=== PATIENT | male | born 1960 | race Caucasian/White ===

== ENCOUNTER 2024-10-20 11:05 | Outpatient (CLI) | payer MEDICAID, SELFPAY ==
[2024-10-20 20:27] LABS: Alanine Aminotransferase 23 U/L (12-78); Albumin Level 3.6 g/dl (3.5-5.0); Alkaline Phosphatase 98 U/L (38-126); Anion Gap 14.3 mEq/L (5-15); Aspartate Amino Transferase 27 U/L (17-59); Bilirubin,Total 0.5 mg/dl (0.2-1.3); Blood Urea Nitrogen 9 mg/dl (9-20); Calcium 9.4 mg/dl (8.4-10.2); Carbon Dioxide 27 mmol/L (22.0-30.0); Chloride 103 mmol/L (98-107); Chol/HDL Ratio 3.5 (1-3.5); Cholesterol 139 mg/dl (140-200); Estimated Glomerular Filt Rate 98 ml/min (>60); GFR (African American) 119 ML/MIN (>60); Globulin 3.7 g/dL (1.3-3.2); Glucose 224 mg/dl (74-100); HDL Cholesterol 40 mg/dl (40-60); Potassium 4.3 mmoL/L (3.5-5.1); Sodium 140 mmol/L (136-145); Total Protein,Serum 7.3 g/dl (6.3-8.2); Triglycerides 126 mg/dl (30-150); VLDL Cholesterol 25 mg/dL (0-40)
[2024-10-20 20:37] LABS: Direct LDL Cholesterol 81.75 mg/dL (100-129)
[2024-10-20 20:45] LABS: Hemoglobin A1C 8.4 % (4.0-6.0)
== END 2024-10-20 23:59 | disposition home or self-care (01) ==
LOC: LAB.DROPOF 10-21 12:38
PROVIDERS: PCP Family Medicine; Visit Provider Family Medicine
DX: E11.9 Type 2 diabetes mellitus without complications (principal); E78.5 Hyperlipidemia, unspecified
CPT/HCPCS: 80053; 80061; 83036

== ENCOUNTER 2024-12-11 15:22 | Outpatient (CLI) | payer MEDICAID, SELFPAY ==
[2024-12-11 17:59] LABS: Basophils # 0.1 K/mm3 (0-0.2); Basophils % 0.5 % (0.1-2.0); Eosinophils # 0.2 Kmm3 (0.0-0.4); Eosinophils % 2.1 % (0.1-12.0); Hematocrit 44.1 % (42.0-52.0); Hemoglobin 13.7 g/dL (14.1-18.0); Immature Granulocytes # 0.02 10^3uL; Immature Granulocytes % 0.2 %; Lymphocytes # 4.1 K/mm3 (0.7-4.5); Lymphocytes % 42.4 % (10-50); Mean Corpuscular HGB Conc 31.1 g/dL (31.8-35.4); Mean Corpuscular Hemoglobin 28.4 pg (27.0-31.2); Mean Corpuscular Volume 91.3 fl (80-94); Mean Platelet Volume 12.1 fl (7.4-10.4); Monocytes # 0.6 K/mm3 (0.1-1.0); Monocytes % 6.5 % (1.7-9.3); Neutrophils # 4.7 K/mm3 (1.8-7.8); Neutrophils % 48.3 % (37.0-80.0); Nucleated Red Blood Cells # 0 10^3/uL; Nucleated Red Blood Cells % 0 %; Platelet Count 222 K/mm3 (142-424); Red Blood Count 4.83 M/mm3 (4.60-6.20); Red Cell Distribution Width 13.8 % (11.5-17.5); Red Cell Distribution Width-SD 46.2 fL; White Blood Count 9.7 K/mm3 (4.8-10.8)
[2024-12-11 18:07] LABS: MANUAL DIFFERENTIAL MANUAL DIFFERENTIAL (MANUAL DIFF)
[2024-12-11 18:36] LABS: Alanine Aminotransferase 21 U/L (12-78); Albumin Level 3.7 g/dl (3.5-5.0); Albumin/Globulin Ratio 1.2 (1.1-1.8); Alkaline Phosphatase 105 U/L (38-126); Anion Gap 12.4 mEq/L (5-15); Aspartate Amino Transferase 24 U/L (17-59); Bilirubin,Total 0.6 mg/dl (0.2-1.3); Blood Urea Nitrogen 7 mg/dl (9-20); Calcium 8.6 mg/dl (8.4-10.2); Carbon Dioxide 23 mmol/L (22.0-30.0); Chloride 108 mmol/L (98-107); Estimated Glomerular Filt Rate 137 ml/min (>60); GFR (African American) 165 ML/MIN (>60); Glucose 136 mg/dl (74-100); Potassium 4.4 mmoL/L (3.5-5.1); Sodium 139 mmol/L (136-145); Total Protein,Serum 6.7 g/dl (6.3-8.2); Uric Acid 4.2 mg/dl (3.5-8.5)
[2024-12-11 19:59] LABS: Total Cells Counted 100
[2024-12-11 20:05] LABS: Atypical Lymphocytes % 10; Eosinophils % 5 % (0-3); Lymphocytes % 36 % (10-50); Monocytes % 2 % (2-9); Neutrophils % 47 % (42-76); Platelet Estimate Normal; RBC Morphology Normal
== END 2024-12-11 23:59 | disposition home or self-care (01) ==
LOC: LAB.DROPOF 12-15 11:00
PROVIDERS: PCP Family Medicine; Visit Provider Family Medicine
DX: E78.5 Hyperlipidemia, unspecified (principal); M79.89 Other specified soft tissue disorders
CPT/HCPCS: 80053; 84550; 85007; 85025; 85027

== ENCOUNTER 2025-06-03 12:18 | Outpatient (CLI) | payer OTHER, SELFPAY ==
--- NOTE | 2025-06-03 12:21 | XR_ITS ---
FINAL REPORT CLINICAL HISTORY: Pain, right foot; right dorsal pain COMPARISON: None FINDINGS: Three views of the right foot show nondisplaced fractures involving the 2nd distal metatarsal shaft in the 4th metatarsal head. There is also a questionable 3rd metatarsal neck fracture. Osteopenia is noted. There are scattered degenerative changes. The joints are intact. IMPRESSION: Fractures as above. Reviewed, Interpreted and Dictated by Vipin Whatley MD Transcribed by Rona John Authenticated and [facility]
--- OUTSIDE RECORDS SUMMARY | 2025-06-03 12:21 | XMS_ITS | Clinical Summary ---
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, subsequent encounter(s) T84.63xD (ICD-10-CM) Active Yun Mcintyre Infection and inflammatory reaction due to internal fixation device of spine, subsequent encounter Cellulitis of LLE 257628066 (SNOMED CT) Active Yun Mcintyre Cellulitis of lower limb Cellulitis of RLE 263633544 (SNOMED CT) Active Yun Mcintyre Cellulitis of lower limb Anasarca 891721054 (SNOMED CT) Active Yun Mcintyre Anasarca Lymphedema, chronic I89.0 (ICD-10-CM) Active Yun Mcintyre Lymphedema, not elsewhere classified DM II with diabetic peripheral neuropathy 15169518 (SNOMED CT) Active Yun Mcintyre Type 2 diabetes mellitus Benign Essential Hypertension 81220883 (SNOMED CT) Active Yun Mcintyre Benign hypertension Medications Medication Instructions Start Date Stop Date Generic Name NDC Provider TAB-A-KAYLYNN/IRO N/BETA CAROTENE TABS multivitamin-iro n- folic acid 85597598598 Jake Shah [employer] lactobac. rhamnosus gg-inulin 35112361316 Jake Shah JARDIANCE 25 MG TABS empagliflozin 84504856051 Jake Shah NARCAN 4 MG/0.1ML LIQD naloxone 90547089693 Jake Shah OXYCODONE HCL 10 MG TABS oxycodone 65178647873 Jake Shah FENOFIBRATE 48 MG TABS fenofibrate nanocrystallized 13223636676 Jake Shah LANTUS SOLOSTAR 100 UNIT/ML SOPN INJECT 40 UNITS SUBCUTANEOUSLY EVERY DAY DIRECTED insulin glargine 06825537254 Jake Shah AMITIZA 24 MCG CAPS lubiprostone 14933541874 Jake Shah DOXYCYCLINE HYCLATE 100 MG TABS doxycycline hyclate 42166194442 Jake Shah aspirin 81 mg tablet,chewabl e aspirin 97817898566 Jake Shah GABAPENTIN 800 MG TABS TAKE 1 TABLET BY MOUTH FOUR TIMES DAILY - TAKE WITH 100MG TO EQUAL A TOTAL DOSE OF 900MG FOUR TIMES DAILY gabapentin 29250577759 Jake Shah THERA-DERM LOTN lanolin-mineral oil 89950619052 Jake Shah POTASSIUM CHLORIDE ER 10 MEQ CR-TABS potassium chloride 57846481723 Issa Shah SENNA 8.6 MG TABS sennosides 09623773963 Jake Shah FUROSEMIDE 40 MG TABS furosemide 13660465733 Jake Shah OXYCODONE HCL 5 MG TABS oxycodone 69354354969 Jake Shah PEG 3350 17 GM/SCOOP POWD polyethylene glycol 3350 31928065542 Jake Shah CLOPIDOGREL BISULFATE 75 MG TABS clopidogrel 58656523907 Jake Shah METHADONE HCL 10 MG TABS TAKE 2 TABLETS BY MOUTH EVERY SIX HOURS methadone 60442482777 Jake Shah SANTYL 250 UNIT/GM OINT collagenase clostridium histo. 24770205216 Jake Shah Medications Administered No information available. 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 Vital Signs Date Name Value Unit Description Body Temperature 97.5 [degF] temperat ure E&M BP Diastolic 70 mm[Hg] blood pressu re, diastolic BP Systolic 98 mm[Hg] blood pressur e, systolic Heart Rate 89 /min pulse rate Weight Measured 213 [lb_av] weight E& M Weight Measured 213 [lb_av] weight E& M Immunizations No information available. Advance Directives No information available.
--- OUTSIDE RECORDS SUMMARY | 2025-06-03 12:21 | XMS_ITS | Clinical Summary ---
Author Organization [facility] Address [address] [place] [address] Phone Care Team Providers Care Seed Cone Picker Name Role Phone Isidro Fisher MD Primary Care Provider [phone] Allergies Active Allergy Reactions Criticality Noted Date Comments Penicillins Hives 11/27/2011 Throat swells Medications bisoprolol-hydro chlorothiazide (ZIAC) 10-6.25 mg per tablet Take 1 Tab by mouth every morning. Active lisinopril (PRINIVIL;ZESTRI L) 2.5 mg tablet Take by mouth every morning. Active prasugrel (EFFIENT) 10 mg Take 10 mg by mouth every morning. Active oxyCODONE (OXY-IR) 30 mg immediate release tablet Take 30 mg by mouth every 4 hours as needed. Active diazepam (VALIUM) 10 mg Take 10 mg by mouth every 12 hours as needed. Active aspirin 325 mg Take 325 mg by mouth daily. 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 Hyperlipidemia taken off medica tion 3 months ago Hypertension Osteoarthritis lt arm, back, lt ankle, lt knee Family History Medical History Relation Name Comments Stroke Father Diabetes Paternal Grandfather Diabetes Paternal Uncle Anesth Problems Neg Hx Relation Name Status Comments Father Mother Alive Paternal Grandfather Paternal Uncle Social History Tobacco Use Types Packs/Day Years Used Date Smoking Tobacco: Every Day Cigarettes 1 20 Alcohol Use Standard Drinks/Week Comments No 0 (1 standard drink = 0.6 oz pur e alcohol) socially Sex and Gender Information Value Date Recorded Sex Assigned at Not on file Legal Sex Male 8:36 AM EDT Gender Identity Not on file Sexual Orientation Not on file Last Filed Vital Signs Vital Sign Reading Time Taken Comments Blood Pressure 122/63 11/30/2011 9:55 AM EDT Pulse 64 11/30/2011 9:55 AM EDT Temperature 36.4 C (97.6 F) 11/30/2011 9:39 AM EDT Respiratory Rate 18 11/30/2011 9:55 AM EDT Oxygen Saturation 95% 11/30/2011 9:55 AM EDT Inhaled Oxygen Concentration - - Weight 111.6 kg (246 lb) 11/30/2011 6:23 AM EDT Height 177.8 cm (5' 10 ) 11/27/2011 10:24 AM EDT Body Mass Index 35.3 11/27/2011 10:24 AM EDT Plan of Treatment Health Maintenance Due Date Last Done Comments Annual Wellness Exam 1965 Hepatitis C Screening 02/13/1980 DTaP/TDaP/Td (1 - Tdap) 1981 Cologuard 2007 Colon Cancer Screening 2007 Colonoscopy 2007 FIT 2007 Sigmoidoscopy 2007 Virtual Colonography 2007 Low Dose Lung Cancer Screening 02/13/2012 Pneumococcal Vaccine 50+ (1 of 1 - PCV) 02/13/2012 Zoster (1 of 2) 02/13/2012 COVID-19 Vaccine (2024-2 6 season) 2025 Influenza Vaccine (#1) 2025 Hepatitis B Vaccine Aged Out No longe r eligible based on patient's age to complete this topic Meningococcal B Vaccine Aged Out No l onger eligible based on patient's age to complete this topic Insurance [employer] [place] on file [employer] Advance Directives For more information, please contact: [phone] Documents on File Type Date Recorded Patient Field Nurse Case Manager Expl anation Advance Directives/DNR 12/03/2011 1:55 PM Care Teams Seed Cone Picker Relationship Specialty Start Date End Date Isidro Fisher MD [address] [facility] [place] [address] PCP - General 11/12/11
--- OUTSIDE RECORDS SUMMARY | 2025-06-03 12:21 | XMS_ITS | Clinical Summary ---
Author Organization [employer] ([place], [place], [place], [place], [place]) Address [address] [place] [address] Care Team Providers Care Accounting Recruiter Name Role Phone Unavailable Primary Care Provider Unavailabl e Social History Tobacco Use Types Packs/Day Years Used Date Smoking Tobacco: Never Assessed Sex and Gender Information Value Date Recorded Sex Assigned at Male 01/16/2022 11:32 AM CDT Legal Sex Male 11:32 AM CDT Gender Identity Male 01/16/2022 11:32 AM CDT Sexual Orientation Not on file Plan of Treatment Not on file
--- OUTSIDE RECORDS SUMMARY | 2025-06-03 12:21 | XMS_ITS | Encounter Summary ---
Author Organization [facility] Address [address] [place] [address] Care Team Providers Care Frame Expander Name Role Phone Norberto Breaux MD Primary Care Provider [phone] Reason for Visit * Reason Comments Med Refill Encounter Details Date Type Department Care Team (Late st Contact Info) Description 04/12/2023 Refill [facility] [address] [place] [address] Isidro Fisher MD [address] [place] [address] Social History Tobacco Use Types Packs/Day Years Used Date Smoking Tobacco: Former Cigarettes 0.5 30 1 08/1988 - 06/2019 Smokeless Tobacco: Never Comments:quit 06/23/2019 Alcohol Use Standard Drinks/Week Comments Yes 0 (1 standard drink = 0.6 oz pur e alcohol) occasional Overall Financial Resource Strain (CARDIA) Answe r Date Recorded How hard is it for you to pa y for the very basics like food, housing, medical care, and heating? Somewhat hard 01/20/2021 PHQ-2 Answer Date Recorded Retired PHQ-9: Brief Depression Severity Measure Score 0 09/05/2022 Hunger Vital Sign Answer Date Recorded Within the past 12 months, y ou worried that your food would run out before you got the money to buy more. Never true 01/21/20 21 Within the past 12 months, t he food you bought just didn't last and you didn't have money to get more. Never true 01/20/2021 PRAPARE - Transportation Answer Date Re corded In the past 12 months, has l ack of transportation kept you from medical appointments or from getting medications? No 08/2020 In the past 12 months, has l ack of transportation kept you from meetings, work, or from getting things needed for daily living? No 01/20/2021 Housing Stability Vital Sign Answer Sebastian e Recorded In the last 12 months, was t here a time when you were not able to pay the mortgage or rent on time? No 01/20/2021 In the last 12 months, how many places have you lived? 1 01/20/2021 In the last 12 months, was t here a time when you did not have a steady place to sleep or slept in a longterm (including now)? No 01/20/2021 Abuse Screen Answer Date Recorded Feels Unsafe at Home or Work/School no 09/28/2022 Feels Threatened by Someone no 09/19 Does Anyone Try to Keep You From Having Contact with Others or Doing Things Outside Your Home? no 09/28/2022 Physical Signs of Abuse Present no 09/28/2022 Housing Stability Answer Date Recorded Current Living Arrangements home 09/19 Potentially Unsafe Housing Conditions Not on natalia e 09/28/2022 Disabilities Answer Date Recorded Difficulty Concentrating, Remembering or Making Decisions no 09/28/2022 Difficulty Managing Errands Independently no 09/28/2022 Education Answer Date Recorded Help with school or training? Not on file Preferred Language Cymro 09/24/2022 PHQ-2 Answer Date Recorded Retired PHQ-9: Brief Depression Severity Measure Score 0 09/05/2022 Sex and Gender Information Value Date Recorded Sex Assigned at Not on file Legal Sex Male 1:17 PM EDT Gender Identity Not on file Sexual Orientation Not on file Occupation Industry Job Start Date Job End Date [employer] Not on file Not on file Not on file documented as of this encounter Plan of Treatment Scheduled Procedures Name Priority Associated Diagnoses Date/Ti nh CV CAROTID CEREBRAL ANGIOGRA M BILATERAL Carotid stenosis, asymptomatic, right CV CAROTID CEREBRAL ANGIOGRA M BILATERAL Carotid stenosis, symptomatic w/o infarct, right Amaurosis fugax of right eye CV IR INTERNAL CAROTID, UNIL AT, W/ANGIOGRAPHY OF IPSILAT INTRACRANIAL CAROTID, W/EXTRACRANIAL CAROTID Carotid stenosis, asymptomatic, bilateral documented as of this encounter Visit Diagnoses Not on filedocumented in this encounter Additional Health Concerns Infection Onset Date Last Indicated Resolved Time MRSA 04/03/2021 04/03/2021 documented as of this encounter Care Teams Frame Expander Relationship Specialty Start Date End Date Norberto Breaux MD [facility] [place] [address] PCP - General Family Medicine 08/12/24 documented as of this encounter
--- OUTSIDE RECORDS SUMMARY | 2025-06-03 12:21 | XMS_ITS | Referral Summary ---
Author Organization [employer] ([place], [place], [place], [place], [place]) Address [address] [place] [address] Care Team Providers Care Application Programmer Analyst Name Role Phone Unavailable Primary Care Provider [...]
--- OUTSIDE RECORDS SUMMARY | 2025-06-03 12:21 | XMS_ITS | Clinical Summary ---
Author Organization [facility] Address [address] [place] [address] Care Team Providers Care Statistical Programmer Name Role Phone Norberto Breaux MD Primary Care Provider [phone] Allergies Active Allergy Reactions Criticality Noted Date Comments Acetaminophen Swelling High 11/13/2017 Makes my throat swell Codeine Rash Medium 10/03/2015 Ketamine Hallucinations Medium 07/06/2020 Penicillins Anaphylaxis High 10/03/2015 Medications aspirin 81 MG EC tabletIndication s:Coronary artery disease involving [place] coronary artery of [place] heart with unstable angina pectoris Take 1 tablet by mouth Daily. 30 tablet 5 0 Active gabapentin (NEURONTIN) 800 MG tabletIndication s:Diabetic peripheral neuropathy Take 1 tablet by mouth 4 (Four) Times a Day. 120 tablet 2 Active topiramate (TOPAMAX) 25 MG tablet 2 (Two) Times a Day. One in morning, one at night but will change 3 Active nitroglycerin (Nitrostat) 0.4 MG SL tabletIndication s:Coronary artery disease involving [place] coronary artery of [place] heart with unstable angina pectoris Place 1 tablet under the tongue Every 5 (Five) Minutes As Needed for Chest Pain. Take no more than 3 doses in 15 minutes. 25 tablet 5 4 Active Continuous Blood Gluc Transmit (Dexcom G6 Transmitter) miscIndications: Type 2 diabetes mellitus without complication, with long-term current use of insulin Use 1 each Daily. 1 each 5 4 Active Continuous Blood Gluc Sustainability Coordinator (Dexcom G7 Sustainability Coordinator) deviceIndication s:Type 2 diabetes mellitus with diabetic neuropathy, with long-term current use of insulin Use 1 each Daily. 1 each 1 4 Active furosemide (LASIX) 40 MG tabletIndication s:Venous stasis of both lower extremities TAKE ONE TABLET BY MOUTH ONCE DAILY 30 tablet 4 Active Additional Information Patient taking differently:40 mg OralAs Needed, Reported on 08/12/2024 lisinopril (PRINIVIL,ZESTRI L) 2.5 MG tabletIndication s:Essential hypertension Take 1 tablet by mouth Daily. 30 tablet 4 4 Active omeprazole (priLOSEC) 40 MG capsuleIndicatio ns:Gastroesophag eal reflux disease, unspecified whether esophagitis present Take 1 capsule by mouth Daily. 90 capsule 1 4 Active B-D UF III MINI PEN NEEDLES 31G X 5 MM misc USE TO INJECT INSULIN DAILY 100 each 9 4 Active methadone (DOLOPHINE) 10 MG tabletIndication s:Chronic pain syndrome Take 2 tablets by mouth Every 6 (Six) Hours As Needed for Moderate Pain 2 tablets every 6 hours, 240 tablet 4 Active atorvastatin (LIPITOR) 80 MG tabletIndication s:Hypercholester olemia Take 1 tablet by mouth every night at bedtime. 30 tablet 5 4 Active empagliflozin (Jardiance) 25 MG tablet tabletIndication s:Type 2 diabetes mellitus with diabetic neuropathy, with long-term current use of insulin Take 1 tablet by mouth Daily. 30 tablet 3 4 Active clopidogrel (PLAVIX) 75 MG tabletIndication s:Coronary artery disease involving [place] coronary artery of [place] heart with unstable angina pectoris Take 1 tablet by mouth Daily. 30 tablet 5 4 Active Insulin Glargine (Lantus SoloStar) 100 UNIT/ML injection penIndications:T ype 2 diabetes mellitus with diabetic neuropathy, with long-term current use of insulin Inject 130 Units under the skin into the appropriate area as directed Every Morning. 45 mL 3 4 Active Continuous Glucose Sensor (Dexcom G7 Sensor) miscIndications: Type 2 diabetes mellitus with diabetic neuropathy, with long-term current use of insulin Use 1 each Every 10 (Ten) Days. 3 each 5 4 Active Sod Picosulfate-Mag Ox-Cit Acd 10-3.5-12 MG-GM -GM/160ML solution Take 350 mL by mouth Take As Directed for 1 dose. 350 mL 5 Active Active Problems Problem Noted Date Diagnosed Date DDD (degenerative disc disease), lumbar 11/25/19 24 Lumbar radiculopathy 08/30/2022 Impaired mobility 10/12/2021 Spondylosis of cervical petey on without myelopathy or radiculopathy 04/17/2021 Cervical spondylosis with myelopathy 03/28/2021 Bilateral carpal tunnel syndrome 02/25/2020 Diabetic peripheral neuropathy 08/27/2019 Unstable angina 10/15/2017 Overview (10/15/2017): Added automatically from request for surgery [id number] PAD (peripheral artery disease) 04/26/2017 Overview (06/05/2017): Added automatically from request for surgery [id number] Fem-Fem bypass by Dr. Roque on 06/05/17 PVD (peripheral vascular disease) 04/24/2017 Intention tremor 03/08/2017 Intermittent claudication 03/04/2017 Bilateral carotid artery stenosis 11/23/2016 GERD (gastroesophageal reflux disease) 7 Gait disturbance 08/13/2016 Hyperlipidemia LDL goal <70 08/13/2016 Overview (10/05/2016): High intensity statin therapy indicated given the presence coronary artery disease Lumbar disc herniation with radiculopathy 2015 Sciatica of right side 12/14/2015 Anxiety 12/09/2015 Chronic pain 12/09/2015 Essential hypertension 12/09/2015 COPD (chronic obstructive pulmonary disease) Type 2 diabetes mellitus wit h diabetic neuropathy, with long-term current use of insulin 12/09/2015 Coronary artery disease invo lving [place] coronary artery of [place] heart with unstable angina pectoris Overview (10/05/2016): Cardiac catheterization (01/09/2012): STANTON to RCA and STANTON to mid LAD. 50% proximal LAD and proximal RCA with normal FFR. Cardiac catheterization (02/20/2012): Patent LAD and RCA stents. STANTON to circumflex bifurcation. Cardiac catheterization (10/03/2012): LVEF 50%. Diffuse disease proximal mid LAD significant with FFR and STANTON placed. STANTON to RCA. Cardiac catheterization (11/2012): Patent stents. 50% circumflex. Cardiac catheterization (09/01/2013): Widely patent stents in RCA, diagonal and LAD. Normal LVEF. 50% OM1 with acceptable FFR. Cardiac catheterization (03/08/2015): Nonobstructive CAD with patent stents. Cardiac catheterization for unstable angina (10/05/2016): Severe multivessel coronary artery disease (distal LAD, first diagonal branch, and distal left circumflex). Status post STANTON to distal LAD, angioplasty of the first diagonal branch, and medical therapy for distal circumflex stenosis. Normal LVEF. Resolved Problems Problem Noted Date Diagnosed Date Resolved Date Right-sided carotid artery disease 02/05/2024 2024 Neck muscle spasm 02/06/2022 08/20/2023 Anasarca 05/23/2021 11/15/2023 Bilateral hand numbness 12/29/202007/23 Neck pain 12/29/2020 08/15/2021 Abnormal carotid duplex scan 10/01/2019 2024 Overview (10/01/2019): Added automatically from request for surgery [id number] Drowsiness 09/07/2019 03/18/2020 Essential tremor 08/27/2019 03/18/2020 Chest pain 10/15/2017 03/03/2018 Peripheral vascular disease 02/06/2017 03/18/2020 Carotid stenosis 01/01/2017 2024 Onychomycosis 11/05/2016 03/18/2020 Bruit of right carotid artery 10/24/2016 08/15/2021 Tobacco abuse 10/24/2016 08/15/2021 Chest pain 10/04/2016 10/05/2016 RUQ pain 10/04/2016 03/03/2018 Unintentional weight loss 10/04/2016 Leukocytosis 10/04/2016 03/03/2018 Current every day smoker 08/13/2016 Pneumonia due to infectious organism 07/30/2016 10/05/2016 Coronary arteriosclerosis in [place] artery 12/09/2015 10/05/2016 Herniated lumbar intervertebral disc 12/09/2015 03/18/2020 Low back pain 12/09/2015 04/07/2018 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 In 1994 and 1995, normal heart catheterization per patient report. b. February 2011, chest pain syndrome, abnormal stress Cardiolite with inferolateral ischemia. Cardiac catheterization showed 90% mid-RCA (3.5 by 28 mm Promus), 60% distal LCX stenosis, 30% LAD. Normal left ventricular ejection fraction. c. On 01/09/2012, chest pain/cardiac catheterization showing mid right coronary artery edge restenosis (3.5 x 18 mm Xience drug eluting stent), 80% mid LAD (3.0 x 12 mm Xience), 50% proximal LAD and proximal right coronary artery both with normal fractional flow reserve. d. On 02/20/2012, recurrent chest pain. Cardiac catheterization showing widely patent LAD and RCA stents. 85% LCX bifurcation (3.0 x 23 mm Xience upper division; 2.5 PTCA of lower division). e. On 10/03/2012, progressive angina. Catheterization showed ejection fraction 50%. Severe diffuse disease in proximal and mid LAD (FFR 0.73). Treated with 3.0 x 28 Promus Element. 90% right coronary artery (3.5 x 28 Promus Element). f. Recurrent chest pain, November 2012: All widely patent stents. No flow-limiting disease (50% LCX). g. Recurrent chest pain, 09/01/2013. Cardiac catheterization with 50% OM-1 (FFR 0.85). Widely patent stents in LAD, RCA, diagonal. Normal left ventricular ejection fraction. h. Chest pain, 03/08/2015, cardiac catheterization, (Dr. Davies), nonflow obstructive coronary artery disease, unchanged from previous. Hypertension 09/29/2019 Dyslipidemia 03/18/2020 Back pain 05/23/2021 Overview (10/24/2016): CHRONIC 1. with a history of lumbar spine surgeries. Anxiety disorder 03/18/2020 Encounters Date Type Department Care Team Description 03/25/2025 Telephone [facility] [address] [place] [address] Navigator, Lung from Last 3 Months Immunizations Immunization Administration Dates Next Due COVID-19 (MERVAT) 06/09/2021,10/13/2020 Fluzone >6mos 05/19/2024 Fluzone (or Fluarix & Flulav al for VFC) >6mos 04/15/2023,05/14/2022,04/28/2020 Influenza, Unspecified 05/14/2022 Family History Medical History Relation Name Comments Coronary artery disease Father rian riosclerosis Hypertension Father Stroke Father Cancer Mother shad senior Heart failure Mother shad senior Diabetes Paternal Grandfather Relation Name Status Comments Father Mother shad senior Paternal Grandfather Social History Tobacco Use Types Packs/Day Years Used Date Smoking Tobacco: Former Cigarettes 0.5 30 1 08/1988 - 06/2019 Passive Smoke Exposure: Never Smokeless Tobacco: Never Tobacco Cessation:Counseling Given: Not Answered Comments:quit 06/23/2019 Alcohol Use Standard Drinks/Week Comments Yes 0 (1 standard drink = 0.6 oz pur e alcohol) occasional [facility] Utilities Answer Date Recorded In the past 12 months has [employer] gas, oil, or water [employer] threatened to shut off services in your home? No 02/06/2024 AUDIT-C Answer Date Recorded Q1: How often do you have a drink containing alcohol? Never 02/06/2024 Q2: How many drinks containi ng alcohol do you have on a typical day when you are drinking? Patient does not drink Q3: How often do you have si x or more drinks on one occasion? Never 02/06/2024 Overall Financial Resource Strain (CARDIA) Answe r Date Recorded How hard is it for you to pa y for the very basics like food, housing, medical care, and heating? Somewhat hard 02/06/2024 PHQ-2 Answer Date Recorded Retired PHQ-9: Brief Depression Severity Measure Score 0 09/05/2022 [facility] Occupat ional Health - Occupational Stress Questionnaire Answer Date Recorded Do you feel stress - tense, restless, nervous, or anxious, or unable to sleep at night because your mind is troubled all the time - these days? Only a little 02/06/2024 Exercise Vital Sign Answer Date Recorde d On average, how many days pe r week do you engage in moderate to strenuous exercise (like a brisk walk)? 0 days 02/06/2024 On average, how many minutes do you engage in exercise at this level? 0 min 02/06/2024 Hunger Vital Sign Answer Date Recorded Within the past 12 months, y ou worried that your food would run out before you got the money to buy more. Never true 02/06/20 24 Within the past 12 months, t he food you bought just didn't last and you didn't have money to get more. Never true 02/06/2024 PRAPARE - Transportation Answer Date Re corded In the past 12 months, has l ack of transportation kept you from medical appointments or from getting medications? No 01/19 In the past 12 months, has l ack of transportation kept you from meetings, work, or from getting things needed for daily living? No 02/06/2024 Housing Stability Vital Sign Answer Sebastian e [...] place to sleep or slept in a [place] health care facility (including now)? No 01/20/2021 Abuse Screen Answer Date Recorded Feels Unsafe at Home or Work/School no 02/06/2024 Feels Threatened by Someone no 01/19 Does Anyone Try to Keep You From Having Contact with Others or Doing Things Outside Your Home? no 02/06/2024 Physical Signs of Abuse Present no 02/06/2024 Housing Stability Answer Date Recorded Current Living Arrangements home 01/19 Potentially Unsafe Housing Conditions none 02/06/2024 Family and Community Support Answer Sebastian e Recorded If for any reason you need h elp with day-to-day activities such as bathing, preparing meals, shopping, managing finances, etc., do you get the help you need? I get all the help I need 02/06/2024 How often do you feel lonely or isolated from those around you? Never 02/06/2024 Employment Answer Date Recorded Do you want help finding or keeping work or a job? I do not need or want help 02/06/2024 Disabilities Answer Date Recorded Difficulty Concentrating, Remembering or Making Decisions no 02/06/2024 Difficulty Managing Errands Independently no 02/06/2024 Education Answer Date Recorded Do you want help with school or training? For example, starting or completing job training or getting a high school diploma, GED or equivalent No 02/06/2024 Preferred Language North Korean 02/06/2024 PHQ-2 Answer Date Recorded Retired PHQ-9: Brief Depression Severity Measure Score 0 02/06/2024 Sex and Gender Information Value Date Recorded Sex Assigned at Not on file Legal Sex Male 1:17 PM EDT Gender Identity Not on file Sexual Orientation Not on file Occupation Industry Job Start Date Job End Date [employer] Not on file Not on file Not on file Last Filed Vital Signs Vital Sign Reading Time Taken Comments Blood Pressure 101/67 08/12/2024 11:37 AM EST Pulse 78 08/12/2024 11:37 AM EST Temperature 36.9 C (98.4 F) 07/14/2024 10:23 AM EST Respiratory Rate 16 07/14/2024 10:23 AM EST Oxygen Saturation 94% 08/12/2024 11:37 AM EST Inhaled Oxygen Concentration - - Weight 107 kg (235 lb 3.2 oz) 08/12/2024 11:37 A M EST Height 177.8 cm (5' 10 ) 08/12/2024 11:37 AM EST Body Mass Index 33.75 08/12/2024 11:37 AM EST Plan of Treatment Scheduled Procedures Name Priority Associated Diagnoses Date/Ti me CV CAROTID CEREBRAL ANGIOGRA M BILATERAL Carotid stenosis, asymptomatic, right CV CAROTID CEREBRAL ANGIOGRA M BILATERAL Carotid stenosis, symptomatic w/o infarct, right Amaurosis fugax of right eye CV IR INTERNAL CAROTID, UNIL AT, W/ANGIOGRAPHY OF IPSILAT INTRACRANIAL CAROTID, W/EXTRACRANIAL CAROTID Carotid stenosis, asymptomatic, bilateral Health Maintenance Due Date Last Done Comments Pneumococcal Vaccine 50+ (1 of 2 - PCV) 1981 TDAP/TD VACCINES (1 - Tdap) 1981 COLOGUARD 2007 COLON CANCER SCREENING [address] SIG[address] COLONOGRAPHY 2007 FECAL OCCULT BLOOD TEST 2007 FIT Testing (1 year) 2007 ZOSTER VACCINE (1 of 2) 02/13/2012 ANNUAL PHYSICAL 12/09/2015 DIABETIC FOOT EXAM 11/05/2017 11/05/2016, 0 11/05/2016, 11/05/2016, Additional history exists URINE MICROALBUMIN-CREATININ E RATIO (uACR) 01/14/2019 01/14/2018 COLONOSCOPY 10/03/2022 10/03/2012 COLORECTAL CANCER SCREENING 10/03/2022 DIABETIC EYE EXAM 11/12/2024 11/13/2023 (Patrick daly-Reported (Performed Externally)), 06/23/2019, 11/27/2016 HEMOGLOBIN A1C 11/17/2024 05/19/2024, 01/19, 02/03/2024, Additional history exists LIPID PANEL 11/24/2024 11/25/2023, 07/22, 01/03/2023, Additional history exists INFLUENZA VACCINE 02/19/2025 05/19/2024, , 05/14/2022, Additional history exists HEPATITIS C SCREENING Completed 09/24/2016 LUNG CANCER SCREENING Discontinued 12/17/2023 , 10/15/2017, 10/04/2016, Additional history exists Medical Devices Implanted Type Area Mortician Helper Device Identifier Shelf Expiration Date Model / Serial / Lot Ptch Vascuguard 1x6cm - [id number] Implanted:Qty : 1 on 01/01/2017 by Mohinder Roque MD at [facility] Implant Left: Carotid SYNOVIS 06/04/2021 [id number] / / [id number] Grft Vasc Propat Thnstrch Pppacdu7x35l2 0 - [id number] Implanted:Qty : 1 on 06/05/2017 by Mohinder Roque MD at [facility] Implant N/A: Groin [employer] 12/09/2020 [id number] / / Kt Seal Hemos Abs Floseal Matrx Fast/Prep 10ml - [id number] Implanted:Qty : 1 on 04/05/2021 by Porter Escobar MD at [facility] Implant N/A: Spine Cervical [facility] [id number] / / [id number] Cage Cerv Anatomic Ptc [id number] - [id number] Implanted:Qty : 1 on 04/05/2021 by Porter Escobar MD at [facility] Implant N/A: Spine Cervical [employer] [id number] / / 0 Plt Acp Bluford Vsn Elt 1lvl 21mm Ns - [id number] Implanted:Qty : 1 on 04/05/2021 by Porter Escobar MD at [facility] Implant N/A: Spine Cervical [employer] [id number] / / 0 Scrw Bluford Vsn Elite Va S/Tap [id number] - [id number] Implanted:Qty : 4 on 04/05/2021 by Porter Escobar MD at [facility] Implant N/A: Spine Cervical [employer] [id number] / / 0 Putty Dbm Memo 6cc - [id number] Implanted:Qty : 1 on 04/05/2021 by Porter Escobar MD at [facility] Implant N/A: Spine Cervical [employer] 12/23/2022 [id number] / / [id number] Kt Seal Hemos Abs Floseal Matrx Fast/Prep 10ml - [id number] Implanted:Qty : 1 on 04/05/2021 by Porter Escobar MD at [facility] Implant N/A: Spine Cervical [facility] [id number] / / 0 Hemost Abs Surgifoam Sz100 8x12 10mm - [id number] Implanted:Qty : 1 on 04/05/2021 by Porter Escobar MD at [facility] Implant N/A: Spine Cervical [employer] J AND J 1974 / / 0 Clip Ligat Vasc Horizon Ti Sm Yel 6ct - [id number] Implanted:Qty : 1 on 04/05/2021 by Porter Escobar MD at [facility] Implant N/A: Spine Cervical [employer] [id number] / / 0 Clip Ligat Vasc Horizon Josep Babb Jean Pierre 6ct - [id number] Implanted:Qty : 1 on 04/05/2021 by Porter Escobar MD at [facility] Implant N/A: Spine Cervical [employer] [id number] / / 0 Clip Ligat Vasc Horizon Ti Md Jean Pierre 6ct - [id number] Implanted:Qty : 1 on 04/18/2021 by Porter Escobar MD at [facility] Implant N/A: Spine Cervical [employer] [id number] / / 0 Clip Ligat Vasc Horizon Ti Sm Yel 6ct - [id number] Implanted:Qty : 1 on 04/18/2021 by Porter Escobar MD at [facility] Implant N/A: Spine Cervical [employer] [id number] / / 0 Kt Seal Hemos Abs Floseal Matrx Fast/Prep 10ml - [id number] Implanted:Qty : 1 on 04/18/2021 by Porter Escobar MD at [facility] Implant N/A: Spine Cervical [facility] [id number] 12/31/2022 [id number] / / [id number] Hemost Abs Surgifoam Sz100 8x12 10mm - [id number] Implanted:Qty : 1 on 04/18/2021 by Porter Escobar MD at [facility] Implant N/A: Spine Cervical [employer] J AND J 1974 / / 0 Pin Compr 16mm - [id number] Implanted:Qty : 2 on 04/18/2021 by Porter Escobar MD at [facility] Implant N/A: Spine Cervical [employer] [id number] / / 0 Cage Cerv Anatomic Ptc [id number] - [id number] Implanted:Qty : 1 on 04/18/2021 by Porter Escobar MD at [facility] Implant N/A: Spine Cervical [employer] [id number] / / 0 Plt Acp Bluford Vsn Elt 1lvl 27.5mm Ns - [id number] Implanted:Qty : 1 on 04/18/2021 by Porter Escobar MD at [facility] Implant N/A: Spine Cervical [employer] [id number] / / 0 Scrw Bluford Vsn Elite Va S/Tap [id number] - [id number] Implanted:Qty : 4 on 04/18/2021 by Porter Escobar MD at [facility] Implant N/A: Spine Cervical [employer] [id number] / / 0 Hemost Abs Surgifoam Sz100 8x12 10mm - [id number] Implanted:Qty : 1 on 09/28/2022 by Porter Escobar MD at [facility] Implant N/A: Spine Lumbar [employer] J AND J 1974 / / NA Kt Seal Hemos Abs Floseal Matrx Fast/Prep 10ml - [id number] Implanted:Qty : 1 on 09/28/2022 by Porter Escobar MD at [facility] Implant N/A: Spine Lumbar [facility] [id number] / / NA Ptch Vasc Vascuguard 1x6cm Strl - Sna - [id number] Implanted:Qty : 1 on 02/05/2024 by Mohinder Roque MD at [facility] Implant Right: Carotid [facility] 08/12/2025 [id number] / NA / [id number] Stent Stent Description:approx 12-14 car diac stents Implant Description:Cervical hardwar e in place Stent Xience Alpine Stanton Rx 2.21u19mh - [id number] Implanted:Qty : 1 on 10/05/2016 by Georges Kidd IV, MD at [facility] PORTILLO VASCULAR [id number] / / Procedures Procedure Name Priority Date/Time Associated Diagnosis Comments HEMOGLOBIN A1C Routine 05/19/2024 2:26 PM EDT Type 2 diabetes mellitus with diabetic neuropathy, with long-term current use of insulin CT CHEST LOW DOSE WO CANCER SCREENING Routine 12/17/2023 9:06 AM EDT Personal history of tobacco use, presenting hazards to health LIPID PANEL Routine 11/25/2023 8:35 AM EDT Hypercholesterolemi a SCANNED - EYE EXAM 06/23/2019 HEPATITIS C ANTIBODY Routine 09/24/2016 11:40 AM EST Need for hepatitis C screening test COLONOSCOPY Routine 10/03/2012 from Last 3 Months or Most Recently Relevant to Health Maintenance Results * (ABNORMAL) Hemoglobin A1c (05/19/2024 2:26 PM EDT) Hemoglobin A1C 6.9(H) 4.8 - 5.6 % [facility] Comment: Prediabetes: 5.7 - 6.4 Diabetes: >6.4 Glycemic control for adults with diabetes: <7.0 Blood 05/19/2024 2:26 PM EDT 05/19/2024 Narrative [facility] ([facility]) - 05/20/2024 8:19 AM EDT Performed at: - [address] [id number] Practice Physician: Dennis Dempsey PhD, Phone: [phone] Patient Fasting: N us Isidro Fisher MD LAB BLOOD ORDERABLES Final Resu lt [facility] ([facility]) [address] [place] [address], [facility] [address] [place] [address], * CT Chest Low Dose Cancer Screening WO (12/17/2023 9:06 AM EDT) Anatomical Region Laterality Modality Chest Computed Tomogra phy 12/19/2023 8:29 AM EDT Impressions 12/19/2023 9:04 AM EDT Impression: 1.Moderate coronary artery calcification. 2.Paraseptal emphysema 3.Minimal atelectasis left basilar area. 4.Gynecomastia Recommendation: Continue annual screening with LDCT Lung Rads Assessment: Lung-RADS L1 - Negative, <1% chance of malignancy. Electronically Signed: Giorgio Alexander MD 12/19/2023 9:04 AM EDT Workstation ID: [id number] Narrative 12/19/2023 9:[address] CHEST LOW DOSE CANCER SCREENING WO Date of Exam: 12/17/2023 9:05 AM EDT Indication: Lung cancer screening, >= 20 pk-yr smoking history (Age >= 50y). Comparison: October 15, 2017 Technique: Low dose CT imaging of the chest was performed without intravenous contrast enhancement. Automated exposure control and iterative reconstruction methods were used. Findings: There is coronary artery calcification. No pathologic-appearing mediastinal lymph nodes are seen. On evaluation of lung windows there is a granuloma in the right lower lobe. There is some minimal atelectasis in the left basilar area. There is paraseptal emphysema in the left upper chest. There are no pleural effusions. There is bilateral gynecomastia. Lower slices through the upper arm reveal no acute findings. Procedure Note Giorgio Alexander MD - 12/19/2023 CT CHEST LOW DOSE CANCER SCREENING WO Date of Exam: 12/17/2023 9:05 AM EDT Indication: Lung cancer screening, >= 20 pk-yr smoking history (Age >=50y). Comparison: October 15, 2017 Technique: Low dose CT imaging of the chest was performed withoutintravenous contrast enhancement. Automated exposure control anditerative reconstruction methods were used. Findings: There is coronary artery calcification. No pathologic-appearingmediastinal lymph nodes are seen. On evaluation of lung windows there is agranuloma in the right lower lobe. There is some minimal atelectasis inthe left basilar area. There is paraseptal emphysema in the left upper chest. There are no pleural effusions. There is bilateral gynecomastia. Lower slices through the upper arm reveal no acute findings. IMPRESSION: Impression: 1.Moderate coronary artery calcification. 2.Paraseptal emphysema 3.Minimal atelectasis left basilar area. 4.Gynecomastia Recommendation: Continue annual screening with LDCT Lung Rads Assessment: Lung-RADS L1 - Negative, <1% chance of malignancy. Electronically Signed: Giorgio Alexander MD 12/19/2023 9:04 AM EDT Workstation ID: [id number] Isidro Fisher MD IMG CT ORDERABLES Final Result * (ABNORMAL) Lipid Panel (11/25/2023 8:35 AM EDT) Total Cholesterol 118 0 - 200 mg/dL [facility] Comment: Cholesterol Reference Ranges ([place]. Department of Health and Human Services ATP III Classifications) Desirable <200 mg/dL Borderline High 200-239 mg/dL High Risk >240 mg/dL Triglyceride Reference Ranges ([place] Department of Health and Human Services ATP III Classifications) Normal <150 mg/dL Borderline High 150-199 mg/dL High 200-499 mg/dL Very High >500 mg/dL HDL Reference Ranges (U.S. Department of Health and Human Services ATP III Classifications) Low <40 mg/dl (major risk factor for CHD) High >60 mg/dl ('negative' risk factor for CHD) LDL Reference Ranges (U.S. Department of Health and Human Services ATP III Classifications) Optimal <100 mg/dL Near Optimal 100-129 mg/dL Borderline High 130-159 mg/dL High 160-189 mg/dL Very High >189 mg/dL Triglycerides 93 0 - 150 mg/dL [facility] HDL Cholesterol 35(L) 40 - 60 mg/dL [facility] VLDL Cholesterol Ronn 18 5 - 40 mg/dL [facility] LDL Chol Calc (NIH) 65 0 - 100 mg/dL [facility] Blood 11/25/2023 8:35 AM EDT 11/25/2023 Narrative [facility] ([facility]) - 11/26/2023 3:07 AM EDT Performed at: [address] [place] [id number] Practice Physician: Jacobo Harris MD, Phone: [phone] Patient Fasting: Y us Isidro Fisher MD LAB BLOOD ORDERABLES Final Resu lt [facility] ([facility]ATORY) [address] [place] [address], [facility] [address] [place] [address], [place] [phone] * SCANNED - EYE EXAM (06/23/2019) Anatomical Region Laterality Modality Other us Isidro Fisher MD CHART REVIEW TABS Final Resu lt * Hepatitis C Antibody (09/24/2016 11:40 AM EST) Hep C Virus Ab <0.1 0.0 - 0.9 s/co ratio [facility] Comment: Negative: < 0.8 Indeterminate: 0.8 - 0.9 Positive: > 0.9 The CDC recommends that a positive HCV antibody result be followed up with a HCV Nucleic Acid Amplification test ([id number]). Blood 09/24/2016 11:4 0 AM EST 09/24/2016 Narrative [facility] (AMBULATORY) - 09/25/2016 6:12 AM EST Performed at: 02 - [facility] [address] [place] [address] [id number] Practice Physician: Dennis Dempsey PhD, Phone: [phone] Isidro Fisher MD LAB BLOOD ORDERABLES Final Resu lt [facility] [address] [place] [address], [facility] [address] [place] [address], * COLONOSCOPY (10/03/2012) Pathologist [facility] Colonoscopy Isidro Fisher Historical Provider HEALTH MAINTENANCE Final Result from Last 3 Months or Most Recently Relevant to Health Maintenance Additional Health Concerns Infection Onset Date 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 04/03/2021 Insurance [employer] [place]ICAID [place] Advance Directives Documents on File Type Date Recorded 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 10/27/2021 10:49 AM DURABLE POA & HC SURROGATE DESIGNATION * CPR (Attempt to Resuscitate) (Latest Code Status on File) Date Activated Date Inactivated Comments 02/05/2024 9:32 AM 02/06/2024 1:32 PM Question Answer Comments Code Status (Patient has no pulse and is not breathing): CPR (Attempt to Resuscitate) Medical Interventions (Patie nt has pulse or is breathing): Full Support * CPR (Attempt to Resuscitate) Date Activated Date Inactivated Comments 04/18/2021 8:05 PM 04/26/2021 2:55 PM Question Answer Comments Code Status (Patient has no pulse and is not breathing): CPR (Attempt to Resuscitate) Medical Interventions (Patie nt has pulse or is breathing): Full Level Of Support Discussed With: Patient * CPR (Attempt to Resuscitate) Date Activated Date Inactivated Comments 04/17/2021 3:30 PM 04/18/2021 8:05 PM Question Answer Comments Code Status (Patient has no pulse and is not breathing): CPR (Attempt to Resuscitate) Medical Interventions (Patie nt has pulse or is breathing): Full Level Of Support Discussed With: Patient * CPR (Attempt to Resuscitate) Date Activated Date Inactivated Comments 04/17/2021 3:00 PM 04/17/2021 3:30 PM Question Answer Comments Code Status (Patient has no pulse and is not breathing): CPR (Attempt to Resuscitate) Medical Interventions (Patie nt has pulse or is breathing): Full * CPR (Attempt to Resuscitate) Date Activated Date Inactivated Comments 04/06/2021 8:51 AM 04/06/2021 3:50 PM Question Answer Comments Code Status (Patient has no pulse and is not breathing): CPR (Attempt to Resuscitate) Medical Interventions (Patie nt has pulse or is breathing): Full Level Of Support Discussed With: Patient Healthcare Agents on File Name Relationship Healthcare Agent Relationship Communication Imelda De Leon Significant Other Health Care Surrogate [email or web address] Care Teams 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
--- OUTSIDE RECORDS SUMMARY | 2025-06-03 12:21 | XMS_ITS | Encounter Summary ---
Author Organization [facility] yste Address [address] [place] [address] Care Team Providers Care Fiscal Clerk Name Role Phone Norberto Breaux MD Primary Care Provider [phone]- [phone] Encounter Details Date Type Department Care Team (Late st Contact Info) Description 08/29/2013 Conversion Encounter [facility] HISTORICAL CONV [address] [place] [address] Interface, See Report Social History Tobacco Use Types Packs/Day Years Used Date Smoking Tobacco: Never Assessed Sex and Gender Information Value Date Recorded Sex Assigned at Not on file Legal Sex Male 1:17 PM EDT Gender Identity Not on file Sexual Orientation Not on file documented as of this encounter Discharge Summaries * Interface, See Report - 08/29/2013 8:19 AM EST [address] [address] DISCHARGE SUMMARY PATIENT NAME: SARWAT SENIOR ROOM NUMBER: [id number] VISIT NUMBER: [id number] DATE OF : 1960 DATE OF ADMISSION: 08/29/2013 DATE OF DISCHARGE: 09/01/2013 PRIMARY CARE PHYSICIAN: Isidro Fisher M.D. DISCHARGE DIAGNOSIS: Chest pain. SECONDARY DIAGNOSES: 1. Coronary artery disease. 2. Hypertension. 3. Dyslipidemia. 4. Tobacco abuse. PROCEDURE/TESTING: Cardiac catheterization on 09/01/[address] Melgoza with nonflow limiting coronary disease and 50% obtuse marginal branch with FFR of 0.85. This confirms nonflow limiting stenosis. There were widely patent stents in the LAD, RCA and obtuse marginal branch. There is diffuse mild 20% to 30% plaque in all vessels with normal LVEF. BRIEF HISTORY: The patient is a 53-year-old male, well known to the practice who presented with 3 weeks of substernal chest pressure. The patient notes that it was similar to what he had previously had from a coronary artery standpoint. He initially thought that he could hold out, but he woke up at midnight prior to admission with chest tightness and radiation to his jaw. He went back to bed and the pain resolved. He woke up again at 3:00 a.m. with emesis and took nitroglycerin, which did not seem to help very much. Due to his symptoms, he was admitted for further evaluation. HOSPITAL COURSE: On 08/29/2013, the patient was admitted for the above reasons. He was admitted to telemetry floor. Overall, he remained in stable condition until 09/01/2013. He did have some mild chest discomfort on 08/31/2013 which was helped with IV nitroglycerin. On 09/01/2013, the patient underwent cardiac catheterization with findings as above. It was felt to be noncardiac chest pain and possible GERD. It was felt that he had reached maximum benefit from his stay in the hospital and was ready for discharge home. DISCHARGE MEDICATIONS: 1. Aspirin 325 mg daily. 2. Ziac 10/6.25 mg daily. 3. Effient 10 mg daily. 4. Lipitor 80 mg at bedtime. 5. Lisinopril 2.5 mg daily. 4. Oxycodone every 4 hours as directed for pain. 5. Valium 10 mg twice daily as needed. 6. Prilosec 40 mg daily. DISPOSITION: 1. The patient was discharged home on a cardiac diet. 2. His activity was per post cardiac catheterization restrictions. 3. He was to follow up with Dr. Melgoza in the [place] clinic on 11/04/2013 at 10:45. DIAGNOSTIC STUDIES: No new labs were checked on 09/01/2013. Any and all abnormal labs were dealt with on an in-house or an outpatient basis and the patient was discharged home in stable condition. Allen Hale RN. Dictated For: Rhoda Melgoza MD. NC/rxdjg Voice Rec. ID #[id number] Voice Original ID #[id number] Doc ID #[id number] Rev. #1 cc: Rhoda Melgoza MD* Isidro Fisher M.D.* DO NOT TEXT EDIT THIS LINE :CDS:610: Authenticated by ALLEN HALE On 11/02/2013 12:04:29 PM Authenticated by RHODA MELGOZA M.D. On 11/03/2013 03:54:47 PM documented in this encounter H&P Notes * Interface, See Report - 08/29/2013 8:19 AM EST [address] HISTORY AND PHYSICAL PATIENT NAME: SARWAT SENIOR [facility] HOSPITAL NO: [id number] DATE OF : 1960 DATE OF ADMISSION: 08/29/2013 ATTENDING PHYSICIAN: Geoffrey Pratt MD REFERRING FACILITY: [facility] ER PRIMARY CARE PHYSICIAN: Isidro Fisher MD IDENTIFICATION: This is a 53-year-old, , male, unemployed resident of [place], [place]. PROBLEM LIST: 1. Coronary artery disease. a) Normal heart cath , data insufficient. b) Chest pain with abnormal Cardiolite, February 2011, status post stenting of the mid-RCA 3.5 x 28 mm Promus, 60% distal left circumflex, 30 LAD, normal EF. c) Recurrent chest pain with left heart catheterization, 01/09/2012: Mid-RCA edge restenosis status post stenting using a 3.5 x 18 mm Xience drug-eluting stent, stenting of the mid-LAD 3.0 x 12 mm Xience, 50% proximal LAD and proximal RCA stenosis with normal FFR. d) Recurrent chest pain, 02/20/2012: Left heart catheterization revealing a patent LAD and RCA stents, 85%, left circumflex bifurcation using a 3.0 x 23 mm Xience drug-eluting stent. e) Recurrent chest pain with left heart catheterization, 10/03/2012: Severe and diffuse disease in proximal mid-LAD with FFR 0.73 treated with a 3.0 x 28 mm Promus drug-eluting stent and the RCA treated with a 3.5 x 28 mm Promus drug-eluting stent. f) Recurrent chest pain, November 2012 with left heart catheterization revealing patent stents and 50% left circumflex. g) Recurrent chest pain with ER presentation. 2. Benign hypertension. 3. Dyslipidemia. 4. GERD. 6. Chronic back pain with lumbar surgeries. 7. Hyperglycemia. 8. Severe anxiety. 9. Obesity. SURGICAL HISTORY: 1. Right ankle surgery and pinning. 2. Left arm reconstruction. ALLERGIES: 1. PENICILLIN, causes rash. 2. HYDROCODONE, unknown reaction. CURRENT MEDICATIONS: 1. Bisoprolol/HCTZ 10/6.25, 1 p.o. daily. 2. Oxycodone 30 mg every 4 hours. 3. Aspirin 325 mg daily. 4. Lisinopril 10 mg daily. 5. Pravachol 40 mg at bedtime. 6. Effient 10 mg daily. 7. Valium 10 mg b.i.d. HISTORY OF PRESENT ILLNESS: The patient is a 53-year-old patient, well known to Dr. Melgoza, who presents with a 3-week history of substernal chest pressure. It was very similar to what he has had previously, but he has an appointment next Saturday and he thought he could hold out. He woke up at midnight with chest tightness with radiation to his jaw. He went back to bed and pain resolved. He woke up at 3:00 a.m. with emesis. His took his first nitro due to pressure. Had a second episode of emesis at 3:45 which was followed by two rounds of diarrhea. By 7:00 a.m. he had taken 3 nitro with no results. He arrived in the ER here at 8:15 still with pain. He had pain with shortness of breath while showering as well. FAMILY HISTORY: Diabetes. SOCIAL HISTORY: Positive for tobacco. Negative for EtOH. Negative for illicit drug use. SURGICAL HISTORY: Please see problem list. REVIEW OF SYSTEMS: Pertinent positives are listed in the problem list and HPI, all others are negative. DIAGNOSTIC DATA: Reveal negative troponin X2. CBC: White blood cell count 17, hemoglobin 17, hematocrit 50. Creatinine is 0.9. EKG: Sinus rhythm. PHYSICAL EXAMINATION (Performed by Dr. Pratt): VITAL SIGNS: Blood pressure: 132/56, heart rate 100, respirations 14. GENERAL: Well-nourished, no acute distress, alert and oriented x3, a 53-year-old male. HEART: Normal S1, S2. No murmur or gallop. LUNGS: Clear. ABDOMEN: Soft, obese. EXTREMITIES: No peripheral edema. SKIN: Warm, dry and intact without ecchymoses or lesions noted. Multiple tattoos. ASSESSMENT AND PLAN: 1. Chest pain with known coronary disease: The patient's symptoms are negative with troponin x2 with no acute EKG changes. We will admit him for observation. We will local control his blood pressure and heart rate by increasing his beta luz and we will see him in the next 24 hours and possible discharge with close follow-up with Dr. Melgoza. 2. Hypertension: Again, we will increase his beta luz. 3. Tobacco abuse: The patient will be educated in smoking cessation. Della Almeida P.A.-C* Dictating for: MD KENA Gauthier/MGRyne/rxsqr Voice Rec. ID #[id number] Voice Original ID #[id number] Doc ID #[id number] Rev. #1 cc: Geoffrey Pratt MD* Isidro Fisher M.D.* DO NOT TEXT EDIT THIS LINE :CHP:291: Authenticated by SLIME AGUILAR On 09/02/2013 09:52:46 AM Authenticated by GEOFFREY PRATT M.D. On 09/08/2013 08:06:15 AM documented in this encounter ED Notes * Interface, See Report - 08/29/2013 8:19 AM EST Clinical Report - Physicians/Mid Levels [facility] Emergency Department [address] [facility], [place] [id number] 08/29/2013 [id number] Sex: M : 1960 Age: 53y Arrived- By private vehicle. Historian- patient. HISTORY OF PRESENT ILLNESS Chief Complaint: CHEST PAIN. It is described as pressure and tightness and it is described as located in the central chest area and radiating to the left jaw and left shoulder. At its maximum, severity described as 8 / 10. When seen in the E.D., severity described as 7 / 10. Modifying factors- relieved by nitroglycerin (one). Not worsened by anything. Not relieved by anything. Relief was transient. This started last night 12MN and is still present. It is not gone now. It was abrupt in onset and has been waxing/waning. Onset during sleep. The patient has had difficulty breathing, nausea and vomiting and has experienced diaphoresis. Similar symptoms previously: Recent medical care: Not recently seen/assessed. REVIEW OF SYSTEMS No fever, cough, fainting episodes, headache or sore throat. No abdominal pain, black stools or skin rash. He has had pedal edema (- gone). All systems otherwise negative, except as recorded above. PAST HISTORY See nurses notes. Coronary artery disease. No history of diabetes mellitus. Additional Problems: Hypertension. Hypercholesterolemia. Stented coronary artery. Heart Disease. Chest Pain. Unstable Angina. Hyperlipidemia. Back Pain. Medications: Blood Pressure Pill 2.5 MG, daily. Aspirin EC Oral 325 mg, daily. Effient Oral (Tablet 10 mg) 1 tablet, DAILY. Lipitor Oral (Tablet 80 mg), at bedtime. Lisinopril-Hydrochlorothiazide Oral 10-6.25, DAILY. OxyCODONE HCl Oral (Tablet 30 mg), Q 4 HOURS. Valium Oral 10 mg, 2x a day as needed. Allergies: Codeine. Penicillins. SOCIAL HISTORY Smoker- current status unknown. No alcohol use or drug use. He lives with a friend. FAMILY HISTORY Heart disease in first-degree relative. ADDITIONAL NOTES The nursing notes have been reviewed. PHYSICAL EXAM Vital Signs: 08/29/2013 08:14 BP: 181/116. HR: 97. RR: 20. O2 saturation: 96%. Temp: 97.6 F. Appearance: Alert. Oriented X3. No acute distress. Eyes: Pupils equal, round and reactive to light. Eyes normal inspection. ENT: Nose normal. Pharynx normal. Neck: Normal inspection. Neck supple. CVS: Normal heart rate and rhythm. Heart sounds normal. Pulses normal. Respiratory: No respiratory distress. Breath sounds normal. Chest nontender. Abdomen: Soft and nontender. Bowel sounds normal. No organomegaly. No mass. Back: Normal external inspection. Skin: Skin warm. Normal skin color. No rash. Extremities: Extremities exhibit normal ROM. No lower extremity edema. No calf tenderness. No lower extremity edema. Neuro: Oriented X 3. No motor deficit. No sensory deficit. LABS, X-RAYS, AND EKG Laboratory Tests: Laboratory tests have been ordered, with results reviewed and considered in the medical decision making process. Chest 1V Port: (ROSENDO: 08/29/2013 08:24)( [facility] 08/29/2013 08:24) New Order Lipase: (ROSENDO: 08/29/2013 08:30)( [facility] Final results Test Result Flag Units (Reference) Lipase 38 U/L (6-52) Amylase: (ROSENDO: 08/29/2013 08:30)( [facility]03[facility] Final results Test Result Flag Units (Reference) Amylase 36 Units/L (20-104) BNP (Natriuretic Peptide): (ROSENDO: 08/29/2013 08:30)( [facility] 08:38) New Order PTT: (ROSENDO: 08/29/2013 08:30)( [facility] 09:04) Final results Test Result Flag Units (Reference) PTT 26 Seconds (24-31) PTT = The equivalent PTT values for the therapeutic range of heparinlevels at 0.3 to 0.5 U/ml are 45 to 60 seconds.PTT = The equivalent PTT values for the therapeutic range of heparinlevels at 0.3 to 0.5 U/ml are 45 to 60 seconds. PT with INR: (ROSENDO: 08/29/2013 08:30)( [facility] 08/29/2013 09:04) Final results Test Result Flag Units (Reference) Protime 11.1 Seconds (9.6-11.5) INR 1.04 Therapeutic Ranges for INR:2.0-3.0 (PT 20-30) 2.5-3.5 (PT 25-34) CMP: (ROSENDO: 08/29/2013 08:30)( [facility] 08/29/2013 09:03) Final results Test Result Flag Units (Reference) Glucose 184 H mg/dL (70-100) BUN 12 mg/dL (6-20) Creatinine 0.9 mg/dL (0.6-1.3) Sodium 143 mmol/L (136-145) Potassium 4.4 mmol/L (3.4-5.4) Chloride 108 H mmol/L (98-107) Carbon Dioxide 26 mmol/L (20-31) Calcium 10.2 mg/dL (8.7-10.4) Alkaline Phos 92 Units/L (25-100) AST 25 Units/L (8-33) ALT 44 H Units/L (7-40) Bilirubin,Total 0.6 mg/dL (0.3-1.2) Total Protein 8.3 g/dL (6.4-8.3) Albumin 3.9 g/dL (3.4-4.8) Ext. MDRD GFR 96 ml/min/1.732 National Kidney Foundation Guidelines Stage Description GFR 1 Normal or High 90+ 2 Mild decrease 60-89 3 Moderate decrease 30-59 4 Severe decrease 15-29 5 Kidney failure <15 Anion Gap 10 mmol/L (3-11) CBC w Auto Diff: (ROSENDO: 08/29/2013 08:30)( [facility] 08/29/2013 08:43) Final results Test Result Flag Units (Reference) WBC 17.79 H K/mcL (3.50-10.80) RBC 5.45 M/mcL (4.20-5.76) Hemoglobin 17.3 g/dL (13.1-17.5) Hematocrit 50.7 % (38.9-50.9) MCV 93.0 fL (80.0-99.0) MCH 31.7 H pg (27.0-31.0) MCHC 34.1 g/dL (32.0-36.0) RDWCV 12.7 % (11.3-14.5) Platelet 258 K/mcL (150-450) Abs Neutrophil 12.74 H K/mcL (1.50-8.30) Abs Lymph 4.01 K/mcL (0.60-4.80) Abs Wise 0.94 K/mcL (0.00-1.00) Abs Eos 0.01 L K/mcL (0.10-0.30) Abs Baso 0.02 K/mcL (0.00-0.20) Nucleated RBC's 0.0 Neutrophils 71.6 H % (41.0-71.0) Lymphocytes 22.5 L % (24.0-44.0) Monocytes 5.3 % (0.0-12.0) Eosinophils 0.1 % (0.0-3.0) Basophils 0.1 % (0.0-1.0) Immature Gran 0.4 % (0.0-0.6) Troponin-I Rapid (ER: (ROSENDO: 08/29/2013 08:35)( [facility] 08/29/2013 08:50) Final results Test Result Flag Units (Reference) Rapid Troponin I 0.00 ng/mL (0.00-0.60) Different methodologies are used for cardiac testing between the ED andmain laboratory. Refer to the appropriate reference range forinterpretation. . PROGRESS AND PROCEDURES Course of Care: 09:48 08/29/13. PT WITH SERIAL REEVAL THROUGH ED COURSE TO DATE. PAIN NOW RESOLVED WITH THE EXCEPTION OF MILD REMENANT PREASSURE AFTER NTG GTT. OLD RECORD REVIEWED. Evaluation after multiple exams, test results returned, oxygen and nitroglycerin. Physical exam findings are improved. Symptoms much better. Consult obtained from cardiology. 09:53 Aug [address] PRATT. WILL EVAL IN ED. Case discussed. Will see patient in the ED. Patient disposition per automotive consultant. Old inpatient records ordered. (WITH STENT IN RCA AND LAD IN SEPTEMBER, FU CATH WITH 50-60% CIRC.). CLINICAL IMPRESSION Chest pain. (Electronically signed by Basil Domínguez M.D. 08/29/2013 15:15) documented in this encounter Plan of Treatment Scheduled Procedures Name Priority Associated Diagnoses Date/Ti me CV CAROTID CEREBRAL ANGIOGRA M BILATERAL Carotid stenosis, asymptomatic, right CV CAROTID CEREBRAL ANGIOGRA M BILATERAL Carotid stenosis, symptomatic w/o infarct, right Amaurosis fugax of right eye CV IR INTERNAL CAROTID, UNIL AT, W/ANGIOGRAPHY OF IPSILAT INTRACRANIAL CAROTID, W/EXTRACRANIAL CAROTID Carotid stenosis, asymptomatic, bilateral documented as of this encounter Procedures Procedure Name Priority Date/Time Associated Diagnosis Comments CBC (NO DIFF) Routine 08/31/2013 5:36 AM EST BASIC METABOLIC PANEL Routine 08/31/2013 5:36 AM EST LIPID PANEL Routine 08/30/2013 5:29 AM EST TROPONIN Routine 08/29/2013 7:23 PM EST POCT TROPONIN I, RAPID Routine 4 11:04 AM EST XR CHEST 1 VW Routine 08/29/2013 9:48 AM EST POCT TROPONIN I, RAPID Routine 4 8:35 AM EST APTT Routine 08/29/2013 8:30 AM EST PROTIME-INR Routine 08/29/2013 8:30 AM EST CBC AND DIFFERENTIAL Routine 08/29/2013 8:30 AM EST B-TYPE NATRIURETIC PEPTIDE Routine 08/29/2013 8:30 AM EST LIPASE Routine 08/29/2013 8:30 AM EST AMYLASE Routine 08/29/2013 8:30 AM EST COMPREHENSIVE METABOLIC PANEL Routine 08/29/2013 8:30 AM EST CARDIAC CATHETERIZATION Routine 08/29/19 14 8:19 AM EST SCANNED EKG 08/29/2013 documented in this encounter Results * (ABNORMAL) Basic metabolic panel (08/31/2013 5:36 AM EST) Glucose 144(H) 70 - 100 mg/dL [facility] BUN 9 6 - 20 mg/dL [facility] Creatinine 0.7 0.6 - 1.3 mg/dL [facility] Sodium 139 136 - 145 mmol/L [facility] Potassium 3.8 3.4 - 5.4 mmol/L [facility] Chloride 105 98 - 107 mmol/L [facility] CO2 30 20 - 31 mmol/L [facility] Calcium 9.1 8.7 - 10.4 mg/dL [facility] eGFR 126 ml/min/1.7 32 [facility] Comment: DF by IF @ 08/31/2013 06:16 National Kidney Foundation Guidelines Stage Description GFR 1 Normal or High 90+ 2 Mild decrease 60-89 3 Moderate decrease 30-59 4 Severe decrease 15-29 5 Kidney failure <15 Anion Gap 4 3 - 11 mmol/L [facility] Blood specimen (specimen) 08/31/2013 5:36 AM EST Narrative [facility] - 08/31/2013 6:16 AM EST Specimen Type: Blood us Geoffrey Pratt MD LAB BLOOD ORDERABLES Final Result [facility] [address] [place] [address], * (ABNORMAL) CBC (No diff) (08/31/2013 5:36 AM EST) WBC 13.32(H) 3.50 - 10.80 /[facility] RBC 4.63 4.20 - 5.76 /[facility] Hemoglobin 14.7 13.1 - 17.5 g/dL [facility] Hematocrit 44.1 38.9 - 50.9 % [facility] MCV 95.2 80.0 - 99.0 fL [facility] MCH 31.7(H) 27.0 - 31.0 pg [facility] MCHC 33.3 32.0 - 36.0 g/dL [facility] RDW-CV 13.0 11.3 - 14.5 % [facility] Platelets 208 150 - 450 /[facility] Blood specimen (specimen) 08/31/2013 5:36 AM EST Narrative [facility] - 08/31/2013 5:54 AM EST Specimen Type: Blood Geoffrey Pratt MD LAB BLOOD ORDERABLES Final Result Performing Organization Address City/[facility]/ZIP Co de Phone Number [facility] [address] [place] [address], * (ABNORMAL) Lipid panel (08/30/2013 5:29 AM EST) Total Cholesterol 180 0 - 200 mg/dL [facility] Comment: DF by IF @ 08/30/2013 05:49 Cholesterol Reference Ranges: Desirable: less than 200 mg/dL Borderline: 200-239 mg/dL High: greater than 239 mg/dL Triglycerides 129 0 - 150 mg/dL [facility] Comment: DF by IF @ 08/30/2013 05:49 Triglyceride Reference Ranges: Normal less than 150 mg/dL Borderline 150-199 mg/dL High 200-499 mg/dL Very High greater than 499 mg/dL HDL Cholesterol 37(L) 40 - 60 mg/dL [facility] Comment: DF by IF @ 08/30/2013 05:49 HDL Cholesterol Reference Ranges: Low less than 40 mg/dL High greater than 59 mg/dL LDL Cholesterol 128(H) 0 - 100 mg/dL [facility] Comment: US by IF @ 08/30/2013 05:49 LDL Cholesterol Reference Ranges: Optimal less than 100 mg/dL Near Optimal 100-129 mg/dL Borderline 130-159 mg/dL High 160-189 mg/dL Very High greater than 189 mg/dL Blood specimen (specimen) 08/30/2013 5:29 AM EST [facility] - 08/30/2013 5:49 AM EST Specimen Type: Blood Della Almeida PA LAB BLOOD ORDERABLES Final Re sult Performing Organization Address [facility] [place] [facility] Co de Phone Number [facility] [address] [place] [address], * Troponin (08/29/2013 7:23 PM EST) Troponin I <0.01 0.00 - 0.60 ng/mL [facility] Blood specimen (specimen) 08/29/2013 7:23 PM EST [facility] - 08/29/2013 8:15 PM EST Specimen Type: Blood Della Almeida PA LAB BLOOD ORDERABLES Final Re sult Performing Organization Address [facility] [place] [facility] Co de Phone Number [facility] [address] [place] [address], * POCT Troponin, Rapid (08/29/2013 11:04 AM EST) Troponin I 0.00 0.00 - 0.60 ng/mL [facility] Comment: Different methodologies are used for cardiac testing between the ED and main laboratory. Refer to the appropriate reference range for interpretation. Blood specimen (specimen) 08/29/2013 11:04 AM EST Narrative [facility] - 08/29/2013 11:20 AM EST Specimen Type: Blood us Historical Provider POINT OF CARE TEST ORDERA BLES Final Result [facility] [address] [place] [address], * XR chest 1 vw (08/29/2013 9:48 AM EST) Anatomical Region Laterality Modality Body N/A Radiographic Bryanna ging 08/29/2013 9:48 AM EST Narrative 08/29/2013 3:49 PM EST AP PORTABLE CHEST HISTORY: Chest pain. FINDINGS: 1. The lungs are clear. The heart is normal. There is no active disease. DICTATED: 08/29/13 EDITED: 08/29/13 Katalina RAY Releasing Rolando RAY Released Date Time- 08/29/13 1554 Procedure Note Ish Young MD - 04/13/2015 AP PORTABLE CHEST HISTORY: Chest pain. FINDINGS: 1. The lungs are clear. The heart is normal. There is no active disease. DICTATED: 08/29/13 EDITED: 08/29/13 Katalina RAY Released Date Time08/29/13 1554 us Basil Domínguez MD IMG DIAGNOSTIC IMAGING ORDERAB LES Final Result * POCT Troponin, Rapid (08/29/2013 8:35 AM EST) Troponin I 0.00 0.00 - 0.60 ng/mL [facility] Comment: Different methodologies are used for cardiac testing between the ED and main laboratory. Refer to the appropriate reference range for interpretation. Blood specimen (specimen) 08/29/2013 8:35 AM EST [facility] - 08/29/2013 8:50 AM EST Specimen Type: Blood Mirella Rodas MD POINT OF CARE TEST ORDERA BLES Final Result Performing Organization Address [facility] [place] [facility] [place] [address], * Lipase (08/29/2013 8:30 AM EST) Lipase 38 6 - 52 U/L [facility] Blood specimen (specimen) 08/29/2013 8:30 AM EST [facility] - 08/29/2013 9:03 AM EST Specimen Type: Blood us Basil Domínguez MD LAB BLOOD ORDERABLES Final Res ult Performing Organization Address City/[facility] [place] [address], * Amylase (08/29/2013 8:30 AM EST) Amylase 36 20 - 104 Units/L [facility] Blood specimen (specimen) 08/29/2013 8:30 AM EST [facility] - 08/29/2013 9:03 AM EST Specimen Type: Blood us Basil Domínguez MD LAB BLOOD ORDERABLES Final Res ult Performing Organization Address City/[facility]/ZIP Co [place] [address], * BNP (08/29/2013 8:30 AM EST) Pathologist [facility] BNP 8 0 - 100 pg/mL [facility] Blood specimen (specimen) 08/29/2013 8:30 AM EST [facility] - 08/29/2013 9:20 AM EST Specimen Type: Blood Basil Domínguez MD LAB BLOOD ORDERABLES Final Res ult Performing Organization Address [facility] [place] [facility] [facility] [place] [address], * APTT (08/29/2013 8:30 AM EST) Pathologist [facility] PTT 26 24 - 31 Seconds [facility] Comment: US by IF @ 08/29/2013 09:04 PTT = The equivalent PTT values for the therapeutic range of heparin levels at 0.3 to 0.5 U/ml are 45 to 60 seconds. PTT = The equivalent PTT values for the therapeutic range of heparin levels at 0.3 to 0.5 U/ml are 45 to 60 seconds. Blood specimen (specimen) 08/29/2013 8:30 AM EST [facility] LABORATORY - 08/29/2013 9:04 AM EST Specimen Type: Blood Basil Domínguez MD LAB BLOOD ORDERABLES Final Res ult Performing Organization Address [facility] [place] [address], * Protime-INR (08/29/2013 8:30 AM EST) Pathologist [facility] Protime 11.1 9.6 - 11.5 Seconds [facility] INR 1.04 [facility] LABORATORY Comment: US by IF @ 08/29/2013 09:04 Therapeutic Ranges for INR: 2.0-3.0 (PT 20-30) 2.5-3.5 (PT 25-34) Blood specimen (specimen) 08/29/2013 8:30 AM EST Narrative [facility] LABORATORY - 08/29/2013 9:04 AM EST Specimen Type: Blood us Basil Domínguez MD LAB BLOOD ORDERABLES Final Res ult [facility] [address] [place] [address], * (ABNORMAL) Comprehensive metabolic panel (08/29/2013 8:30 AM EST) Glucose 184(H) 70 - 100 mg/dL [facility] BUN 12 6 - 20 mg/dL [facility] Creatinine 0.9 0.6 - 1.3 mg/dL [facility] Sodium 143 136 - 145 mmol/L [facility] Potassium 4.4 3.4 - 5.4 mmol/L [facility] Chloride 108(H) 98 - 107 mmol/L [facility] CO2 26 20 - 31 mmol/L [facility] Calcium 10.2 8.7 - 10.4 mg/dL [facility] Alkaline Phosphatase 92 25 - 100 Units/L [facility] AST (SGOT) 25 8 - 33 Units/L [facility] ALT (SGPT) 44(H) 7 - 40 Units/L [facility] Total Bilirubin 0.6 0.3 - 1.2 mg/dL [facility] Total Protein 8.3 6.4 - 8.3 g/dL [facility] Albumin 3.9 3.4 - 4.8 g/dL [facility] eGFR 96 ml/min/1.7 32 [facility] Comment: DF by IF @ 08/29/2013 09:03 [employer] Guidelines Stage Description GFR 1 Normal or High 90+ 2 Mild decrease 60-89 3 Moderate decrease 30-59 4 Severe decrease 15-29 5 Kidney failure <15 Anion Gap 10 3 - 11 mmol/L [facility] Blood specimen (specimen) 08/29/2013 8:30 AM EST Narrative [facility] LABOR[facility] - 08/29/2013 9:03 AM EST Specimen Type: Blood us Basil Domínguez MD LAB BLOOD ORDERABLES Final Res ult [facility] [address] [place] [address], * (ABNORMAL) CBC and Differential (08/29/2013 8:30 AM EST) WBC 17.79(H) 3.50 - 10.80 K/[facility] RBC 5.45 4.20 - 5.76 /[facility] Hemoglobin 17.3 13.1 - 17.5 g/dL [facility] Hematocrit 50.7 38.9 - 50.9 % [facility] MCV 93.0 80.0 - 99.0 fL [facility] MCH 31.7(H) 27.0 - 31.0 pg [facility] MCHC 34.1 32.0 - 36.0 g/dL [facility] RDW-CV 12.7 11.3 - 14.5 % [facility] Platelets 258 150 - 450 [facility]roph[facility] Absolute 12.74(H) 1.50 - 8.30 [facility] Lymphocytes Absolute 4.01 0.60 - 4.80 [facility] Monocytes Absolute 0.94 0.00 - 1.00 [facility] Eosinophils Absolute 0.01(L) 0.10 - 0.30 [facility] Basophils Absolute 0.02 0.00 - 0.20 [facility] nRBC 0.0 [facility] Neutrophil Rel % 71.6(H) 41.0 - 71.0 % [facility] Lymphocyte Rel % 22.5(L) 24.0 - 44.0 % [facility] Monocyte Rel % 5.3 0.0 - 12.0 % [facility] Eosinophil Rel % 0.1 0.0 - 3.0 % [facility] Basophil Rel % 0.1 0.0 - 1.0 % [facility] Immature Granulocyte Rel % 0.4 0.0 - 0.6 % [facility] Blood specimen (specimen) 08/29/2013 8:30 AM EST Narrative [facility] - 08/29/2013 8:43 AM EST Specimen Type: Blood Basil Domínguez MD LAB BLOOD ORDERABLES Final Res ult Performing Organization Address City/State/[facility] [place] [address], * Cardiac catheterization (08/29/2013 8:19 AM EST) Anatomical Region Laterality Modality Other 08/29/2013 8:19 AM EST Narrative 08/29/2013 8:19 AM EST [place] [address] CARDIAC CATHETERIZATION PATIENT NAME: SARWAT SENIOR [address] [facility] NO: [id number] [facility] NO: [id number] DATE OF : 1960 DATE OF ADMISSION: 08/29/2013 DATE OF PROCEDURE: 09/01/2013 CHARGING CRANE OPERATOR: Isidro Fisher M.D.*, Primary Care Physician PRIMARY POLICE OR PATROL PARK OFFICER/SLIP COVER SEWER: Rhoda Melgoza MD* INDICATIONS FOR THIS PROCEDURE: 1. Recurrent chest pain. 2. Known coronary artery disease. PROCEDURES PERFORMED: 1. Left heart catheterization. 2. Left ventriculography. 3. Selective coronary arteriography. 4. Right femoral artery access using 6-Swedish catheters. 5. Fractional flow reserve assessment of the distal obtuse marginal branch. 6. Deployment of an Angio-Seal closure device for achievement of hemostasis. DESCRIPTION OF THE PROCEDURE: Left heart catheterization, selective coronary arteriography, and left ventriculography were performed via the right femoral artery using 6-Swedish catheters. There was a borderline stenosis seen in the distal obtuse marginal branch (beyond the stent). The patient underwent fractional flow reserve of this vessel, which was normal. Thus, the case was successfully terminated, and the sheath was removed and hemostasis was obtained in the right common femoral artery using an Angio-Seal closure device. COMPLICATIONS: There were no complications. RESULTS: HEMODYNAMIC DATA (Pressures in mm Hg): LEFT HEART PRESSURES: AORTIC: 112/56 mmHg LEFT VENTRICULAR: 112 mmHg LEFT VENTRICULAR END-DIASTOLIC PRESSURE: 18 mmHg No pullback gradient across the aortic valve. ANGIOGRAPHIC FINDINGS: LEFT VENTRICULOGRAPHY: MOJICA left ventriculography revealed an overall left ventricular ejection fraction of 55 plus or minus 5%. There was normal wall motion noted. There was no mitral regurgitation noted. SELECTIVE CORONARY ANGIOGRAPHY: GRINDSTONE VESSELS: LEFT MAIN CORONARY ARTERY: The left main coronary artery was a normal vessel. The left main coronary artery contained no angiographic atherosclerosis. LEFT ANTERIOR DESCENDING CORONARY ARTERY: The left anterior descending coronary artery was a large vessel. The left anterior descending coronary artery gave rise to 1, large diagonal branch. There was a widely patent, proximal LAD stent. Beyond this, there was some diffuse, 20% to 30% plaque seen in the mid- LAD. The diagonal branch, itself, was large with mild (20% to 30%) plaque throughout its proximal portions in both upper and lower divisions. LEFT CIRCUMFLEX CORONARY ARTERY: The left circumflex coronary artery was a moderate, though, nondominant vessel. The left circumflex coronary artery gave rise to a branching obtuse marginal branch and a left posterolateral branch. In the first obtuse marginal branch, there was a widely patent stent. There was a 30% step-up in the proximal margin. Distally, there was a 50%, hazy stenosis seen just at a bend in the artery (this was the area that underwent fractional flow reserve determination). RIGHT CORONARY ARTERY: The right coronary artery was a moderate-sized, though, dominant vessel. The right coronary artery gave rise to the right posterior descending artery and a small posterolateral branch. There were multiple widely patent stents seen in the RCA. There was diffuse, mild, 20% to 30% plaque seen only in the distal vessels. FRACTIONAL FLOW RESERVE DETERMINATION: FRACTIONAL FLOW RESERVE OF THE OBTUSE MARGINAL BRANCH: Fractional flow reserve of the obtuse marginal branch was 0.85. FINAL IMPRESSION: 1. Oak-xvkk-kdyicjvb coronary artery disease. a) A 50% stenosis in the obtuse marginal branch with a fractional flow reserve of 0.85. This confirmed a lbl-onpo-xuogfxrm stenosis. b) Widely patent stents in the left anterior descending coronary artery, right coronary artery, and obtuse marginal branch. c) Diffuse, mild (20% to 30%) plaque in all vessels. 2. Normal left ventricular function. 3. Normal hemodynamics. RECOMMENDATIONS: 1. Zay-wgkn-hkubmuif coronary artery disease. 2. The patient will be started on enteric Proton pump inhibitor for presumed gastroesophageal reflux disease. 3. The patient is to follow up with Dr. Fisher for further evaluation of noncardiac causes of chest pain. Rhoda Melgoza MD* AM/rxjaw Voice Rec. ID #[id number] Original Voice Rec. ID #[id number] Doc ID #[id number] Revision Count: 0 cc: Rhoda Melgoza MD* Isidro Fisher M.D.* [place] [address] CARDIAC CATHETERIZATION PATIENT NAME: SARWAT SENIOR [address] [place] [address] NO: [id number] [facility] NO: [id number] DATE OF : 1960 <END HEADER> DO NOT TEXT EDIT THIS LINE :CCC:[id number]: Authenticated by RHODA MELGOZA M.D. On 09/10/2013 10:51:30 AM Procedure Note Interface, See Report - 04/11/2015 [place] [address] CARDIAC CATHETERIZATION PATIENT NAME: SARWAT SENIOR [address] [place] [address] NO: [id number] [facility] NO: [id number] DATE OF : 1960 DATE OF ADMISSION: 08/29/2013 DATE OF PROCEDURE: 09/01/2013 CHARGING CRANE OPERATOR: Isidro Fisher M.D.*, Primary Care Physician PRIMARY POLICE OR PATROL PARK OFFICER/SLIP COVER SEWER: Rhoda Melgoza MD* INDICATIONS FOR THIS PROCEDURE: 1. Recurrent chest pain. 2. Known coronary artery disease. PROCEDURES PERFORMED: 1. Left heart catheterization. 2. Left ventriculography. 3. Selective coronary arteriography. 4. Right femoral artery access using 6-Swedish catheters. 5. Fractional flow reserve assessment of the distal obtuse marginalbranch. 6. Deployment of an Angio-Seal closure device for achievement ofhemostasis. DESCRIPTION OF THE PROCEDURE: Left heart catheterization, selectivecoronary arteriography, and left ventriculography were performed via the rightfemoral artery using 6-Swedish catheters. There was a borderline stenosis seen inthe distal obtuse marginal branch (beyond the stent). The patient underwent fractional flow reserve of this vessel, which was normal. Thus, the casewas successfully terminated, and the sheath was removed and hemostasis wasobtained in the right common femoral artery using an Angio-Seal closure device. COMPLICATIONS: There were no complications. RESULTS: HEMODYNAMIC DATA (Pressures in mm Hg): LEFT HEART PRESSURES: AORTIC: 112/56 mmHg LEFT VENTRICULAR: 112 mmHg LEFT VENTRICULAR END-DIASTOLIC PRESSURE: 18 mmHg No pullback gradient across the aortic valve. ANGIOGRAPHIC FINDINGS: LEFT VENTRICULOGRAPHY: MOJICA left ventriculography revealed an overallleft ventricular ejection fraction of 55 plus or minus 5%. There was normalwall motion noted. There was no mitral regurgitation noted. SELECTIVE CORONARY ANGIOGRAPHY: GRINDSTONE VESSELS: LEFT MAIN CORONARY ARTERY: The left main coronary artery was a normalvessel. The left main coronary artery contained no angiographic atherosclerosis. LEFT ANTERIOR DESCENDING CORONARY ARTERY: The left anterior descending coronary artery was a large vessel. The left anterior descendingcoronary artery gave rise to 1, large diagonal branch. There was a widely patent, proximal LAD stent. Beyond this, there was some diffuse, 20% to 30% plaqueseen in the mid- LAD. The diagonal branch, itself, was large with mild (20% to30%) plaque throughout its proximal portions in both upper and lower divisions. LEFT CIRCUMFLEX CORONARY ARTERY: The left circumflex coronary artery wasa moderate, though, nondominant vessel. The left circumflex coronary arterygave rise to a branching obtuse marginal branch and a left posterolateralbranch. In the first obtuse marginal branch, there was a widely patent stent. Therewas a 30% step-up in the proximal margin. Distally, there was a 50%, hazystenosis seen just at a bend in the artery (this was the area that underwentfractional flow reserve determination). RIGHT CORONARY ARTERY: The right coronary artery was a moderate-sized,though, dominant vessel. The right coronary artery gave rise to the rightposterior descending artery and a small posterolateral branch. There were multiplewidely patent stents seen in the RCA. There was diffuse, mild, 20% to 30% plaqueseen only in the distal vessels. FRACTIONAL FLOW RESERVE DETERMINATION: FRACTIONAL FLOW RESERVE OF THE OBTUSE MARGINAL BRANCH: Fractional flow reserve of the obtuse marginal branch was 0.85. FINAL IMPRESSION: 1. Wsy-rygy-adzyxrsf coronary artery disease. a) A 50% stenosis in the obtuse marginal branch with a fractional flowreserve of 0.85. This confirmed a gbb-vlzv-llpfvhul stenosis. b) Widely patent stents in the left anterior descending coronary artery,right coronary artery, and obtuse marginal branch. c) Diffuse, mild (20% to 30%) plaque in all vessels. 2. Normal left ventricular function. 3. Normal hemodynamics. RECOMMENDATIONS: 1. Pby-wboi-cgnjlvey coronary artery disease. 2. The patient will be started on enteric Proton pump inhibitor forpresumed gastroesophageal reflux disease. 3. The patient is to follow up with Dr. Fisher for further evaluationof noncardiac causes of chest pain. Rhoda Melgoza MD* AM/rxjaw Voice Rec. ID #[id number] Original Voice Rec. ID #[id number] Doc ID #[id number] Revision Count: 0 cc: Rhoda Melgoza MD* Isidro Fisher M.D.* [place] [address] CARDIAC CATHETERIZATION PATIENT NAME: SARWAT SENIOR [address] [place] [address] NO: [id number] [facility] NO: [id number] DATE OF : 1960 <END HEADER> DO NOT TEXT EDIT THIS LINE :[facility]:[id number]: Authenticated by RHODA MELGOZA M.D. On 09/10/2013 10:51:30 AM us See Report Interface CV CARDIAC CATH ORDERABLES Final Result * SCANNED EKG (08/29/2013) [facility] Onbase ECG ORDERABLES Final Result documented in this encounter Visit Diagnoses Not on filedocumented in this encounter Additional Health Concerns Infection Onset Date Last Indicated Resolved Time COVID Screen (preop/placement) 04/03/2021 04/03/2021 04/03/2021 7:33 PM EDT MRSA 04/03/2021 04/03/2021 COVID Screen (preop/placement) 04/17/2021 04/17/2021 04/17/2021 6:52 PM EDT documented as of this encounter Care Teams Fiscal Clerk Relationship Specialty Start Date End Date Norberto Breaux MD [address] [place] [address] PCP - General Family Medicine 08/12/24 documented as of this encounter
--- OUTSIDE RECORDS SUMMARY | 2025-06-03 12:21 | XMS_ITS | Encounter Summary ---
Author Organization [employer] ([place], [place], [place], [place], [place]) Address [address] [place] [address] Care Team Providers Care Manager Project Name Role Phone Unavailable Primary Care Provider Unavailabl e Encounter Details Date Type Department Care Team (Late st Contact Info) Description 10/03/2020 Transcribed Document [facility] [place] [address] ProviderMirella MD [address] [place] [address] Social History Tobacco Use Types Packs/Day Years Used Date Smoking Tobacco: Never Assessed Sex and Gender Information Value Date Recorded Sex Assigned at Male 01/16/2022 11:32 AM CDT Legal Sex Male 11:32 AM CDT Gender Identity Male 01/16/2022 11:32 AM CDT Sexual Orientation Not on file documented as of this encounter Miscellaneous Notes * Cerner Conversion Note - Mirella ProviderMD - 10/03/2020 8:41 AM CDT Patient: SARWAT SENIOR Age: 60 Years Sex: Male : 1960 INITIAL PATIENT EVALUATION DATE OF SERVICE: 09/13/2020. CHIEF COMPLAINT: Low back pain. HISTORY OF PRESENT ILLNESS: Mr. Senior is a 60-year-old gentleman who has had a longstanding history of chronic low back pain. The patient sustained a traumatic injury from a fall back in the late which significantly damaged his left arm. This required a rib resection but he has had chronic pain through the left arm for many years. He then sustained a traumatic injury to his right ankle and has had chronic issues associated with the right ankle pain. However, his presenting issue for us is mainly low back pain. The patient has had a longstanding history of low back pain that he says occurs on a daily basis. He would rate his pain from all sources a 6/10. In regards to the back pain, he says he has pain worse with nearly any activity, also with prolonged sitting. The patient reports pain through the lower back that radiates into the hips and sometimes down to about the knees. He does report some paresthesias but nothing below the knees. The patient says he was seeing a pain management doctor several years ago who initiated him on Methadone and the patient said he did well on Methadone but he said once the doctor left that practice, he was trying to find another clinic that would write him Methadone. He was not able to really find anybody that could write him Methadone which he felt to be very effective. The patient has tried several other opiates including Oxycodone, Hydrocodone, and Morphine which he has not found to be effective for his pain. He says he has tried some injective therapy, although, he is not sure exactly what that involved but really never found that to be very effective. Of late, the patient has been going to a Methadone clinic but he says that has been very problematic and inconvenient. He says, again, he has been using that for pain and he is on a current dose of 120 mg. He is on take-homes but he is looking to avoid that situation and would like to get involved with pain management taking Methadone. He is not opposed to injective therapy, though, if that could prove to be effective. The patient is denying any significant paresthesias, denies any bowel or bladder complaints associated with the pain, but is quick to stress that he has more than just his low back as an issue. He reports pain through the right ankle and the left upper extremity also. HISTORY: Allergies: No known drug allergies. Past Medical History: He has a history of diabetes, history of diabetic neuropathy, history of high cholesterol. Past Surgical History: He has had previous heart surgery. Past Family History: Positive for stroke and cancer. Social History: Marital status: Single. Current work status: Disabled. Current tobacco use: Does not smoke. Illicit drug use: Denies any illicit substance. I have reviewed his NADIA report. Again, this does not show the daily Methadone that he is getting through that self-dispensing clinic. He does report that he is on 120 mg/d. He says he gets take-homes and usually actually takes less than the 120. Alcohol use: Does not drink. REVIEW OF SYSTEMS: The patient's ten system Review of Systems was reviewed. General: Positive for fatigue. Respiratory: Negative. Neurological: Positive for diabetic neuropathy. Gastrointestinal: Negative. Musculoskeletal: Positive for joint pain/stiffness, back pain, muscle aches and pains. Leg pain with walking associated with his ankle. Cardiovascular: Negative. Psychiatric: Negative. HEENT: Negative. Endocrine: Negative. Hematology: Negative. PHYSICAL EXAMINATION: Vital signs: Blood pressure is 118/79, heart rate is 95. The patient is 5'9 and weighs 235 lbs. Constitutional: The patient is conversant and in no acute distress. Psychiatric: The patient is alert and oriented. Normal mood and affect are noted. HEENT: Normocephalic. Pupils are equally round and nares are patent. Neck: The neck is soft, supple, and nontender with good range of motion. Lungs: The lungs are clear to auscultation with normal chest wall excursion. Heart: The heart is regular with no murmurs, gallops, or rubs. Abdomen: The abdomen is obese, soft, and nontender. Skin: Normal turgor with no lesions. Musculoskeletal: The patient has reduced range of motion of the left shoulder. He has pain through the left shoulder girdle and into the axillary region from where he has had previous surgical intervention. He has reduced range of motion of the right ankle related to significant issues of the right ankle. He does manifest an antalgic gait. He has axial tenderness to palpation to the lower lumbar segments involving the region of L4-5 and L5-S1 with positive facet loading noted through this region. No spasms are noted through this region. Neurologic: The patient appears to be mostly intact. No overt motor deficits are appreciable. Reflexes, though diminished, are symmetric. IMPRESSION: 1. Chronic musculoskeletal pain status post trauma involving multiple areas. 2. 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 3. Chronic low back pain with facet joint arthritis. 4. Diabetic peripheral neuropathy. DISCUSSION: Mr. Senior and I have discussed things at length. Again, he readily admits he is looking for a pain clinic that would continue to monitor him but keep him on Methadone. I must admit in several regards, Methadone may be a good treatment option for this patient. He has neuropathic pain associated with his neuropathy and has previously failed Gabapentin and Lyrica. Methadone with its activity of NMDA receptors is frequently beneficial as an atypical opiate for neuropathic pain. However, I have also indicated to the patient, the dose of Methadone that he is on at this time is beyond what we would typically write through our clinic. However, he is also emphasizing that he doesn't usually take 120 mg; he usually will take somewhere between 80 and 100. I have discussed with him the nature of his pain and I told him there are some aspects of his pain that I think could be amenable to injective therapy. I think he could be a good candidate for a medial branch block and a possible rhizotomy and that could help a lot with the axial low back pain and we did discuss that. I also believe that this patient has multiple sources of pain that is pretty much chronic, persistent, and very consistent. I think in that respect he could also be a good candidate for a targeted intrathecal drug delivery system. I am going to give him information about the pump to at least be familiar with. That may be something we involve moving forward. Otherwise, we have come to agreement that I would be willing to write him the Methadone. I am going to write him 80 mg a day in divided dosages. I have indicated to the patient that we will not escalate beyond that. In fact, it would be my goal to see if we couldn't work him down even further as tolerated as we involve interventional techniques. I am going to see him back in four week follow-up. Milton Deng II, M.D. NIRMALA/william documented in this encounter Plan of Treatment Not on file documented as of this encounter Visit Diagnoses Not on filedocumented in this encounter
--- OUTSIDE RECORDS SUMMARY | 2025-06-03 12:21 | XMS_ITS | Encounter Summary ---
[facility] Organization [facility] Address [address] [place] [id number] Care Team Providers Care Reconcilement Clerk Name Role Phone Norberto Breaux MD Primary Care Provider [phone] Reason for Visit * Reason Onset Date Comments COVID CONCERN 08/21/2022 Med Refill 08/21/2022 Encounter Details Date Type Department Care Team (Late st Contact Info) Description 08/21/2022 Refill [facility] [address] [place] [address] Isidro Fisher MD [address] [place], [place] [id number] Neck muscle spasm Social History Tobacco Use Types Packs/Day Years Used Date Smoking Tobacco: Former Cigarettes 0.5 30 1 08/1988 - 06/2019 Smokeless Tobacco: Never Comments:quit 06/23/2019 Alcohol Use Standard Drinks/Week Comments Not Currently 0 (1 standard drink = 0.6 oz pur e alcohol) occasional Overall Financial Resource Strain (CARDIA) Answe r Date Recorded How hard is it for you to pa y for the very basics like food, housing, medical care, and heating? Somewhat hard 01/20/2021 PHQ-2 Answer Date Recorded Retired PHQ-9: Brief Depression Severity Measure Score 0 11/13/2021 Hunger Vital Sign Answer Date Recorded Within [...] place to sleep or slept in a fpc (including now)? No 01/20/2021 Sex and Gender Information Value Date Recorded Sex Assigned at Not on file Legal Sex Male 1:17 PM EDT Gender Identity Not on file Sexual Orientation Not on file Occupation Industry Job Start Date Job End Date [employer] Not on file Not on file Not on file documented as of this encounter Miscellaneous Notes * Telephone Encounter - Afua Richards RegSched Rep - 08/21/2022 8:34 AM EST Caller: Duke Senior Relationship: Self Best call back number: [phone] Requested Prescriptions: diazePAM (Valium) 5 MG tablet Pharmacy where request should be sent: [facility] - [place] [address] - [phone] [facility] [phone] FX Does the patient have less than a 3 day supply: [x] Yes [] No Would you like a call back once the refill request has been completed: [x] Yes [] No If the office needs to give you a call back, can they leave a voicemail: [x] Yes [] No Klever Mota 08/21/22 08:34 EST * Telephone Encounter - Afua Richards RegSched Rep - 08/21/2022 8:31 AM EST Caller: Duke Senior Relationship to patient: Self Best call back number: [phone] Date of positive COVID19 test: 08/20 COVID19 symptoms: COUGH AND CAN HARDLY TALK BECAUSE OF COUGH What is the patients preferred pharmacy: [facility] - [address] - [phone] - [phone] FX PT REQUEST MEDICATION documented in this encounter Plan of Treatment [...] documented as of this encounter Visit Diagnoses Diagnosis Neck muscle spasm documented in this encounter Additional Health Concerns Infection Onset Date Last Indicated Resolved Time MRSA 04/03/2021 04/03/2021 documented as of this encounter Care Teams Reconcilement Clerk Relationship Specialty Start Date End Date Norberto Breaux MD [address] [place] [id number] PCP - General Family Medicine 08/12/24 documented as of this encounter
--- OUTSIDE RECORDS SUMMARY | 2025-06-03 12:22 | XMS_ITS | Encounter Summary ---
Author Organization [facility] Address [address] [place] [address] Care Team Providers Care Diagram Clerk Name Role Phone Norberto Breaux MD Primary Care Provider [phone]- [phone] Encounter Details Date Type Department Care Team (Late st Contact Info) Description 03/25/2025 Telephone [facility] DEPT [id number] [place] [address] Navigator, Lung Social History Tobacco Use Types Packs/Day Years Used Date Smoking Tobacco: Former Cigarettes 0.5 30 1 08/1988 - 06/2019 Passive Smoke Exposure: Never Smokeless Tobacco: Never Comments:quit 06/23/2019 Alcohol Use Standard Drinks/Week Comments Yes 0 (1 standard drink = 0.6 oz pur e alcohol) occasional C Utilities Answer Date Recorded In the past 12 months has just.me, gas, oil, or water [employer] threatened to shut off services in your [...] Brief Depression Severity Measure Score 0 09/05/2022 [facility] - Occupational Stress Questionnaire Answer Date Recorded [...] place to sleep or slept in a mcc (including now)? No 01/20/2021 Abuse Screen Answer [...] GED or equivalent No 02/06/2024 Preferred Language Prydeinig 02/06/2024 PHQ-2 Answer Date Recorded Retired PHQ-9: Brief Depression Severity Measure Score 0 02/06/2024 Sex and Gender Information Value Date Recorded Sex Assigned at Not on file Legal Sex Male 1:17 PM EDT Gender Identity Not on file Sexual Orientation Not on file Occupation Industry Job Start Date Job End Date [employer] Not on file Not on file Not on file documented as of this encounter Miscellaneous Notes * Telephone Encounter - [facility] - 03/25/2025 4:03 PM EDT Provider Call Reason for call: Overdue Outcome of call: No Answer Additional Notes: No answer, unable to leave [facility] Provider Name: Norberto Breaux documented in this encounter Plan of Treatment [...] documented as of this encounter Care Teams Diagram Clerk Relationship Specialty Start Date End Date Norberto Breaux MD [facility] [place] [address] PCP - General Family Medicine 08/12/24 documented as of this encounter
--- OUTSIDE RECORDS SUMMARY | 2025-06-03 12:22 | XMS_ITS | Encounter Summary ---
Author Organization [facility] Address [address] [place] [id number] Care Team Providers Care Setup Technician Name Role Phone Isidro Fisher MD Primary Care Provider [phone] Reason for Referral * Consultation (Routine) - Closed Specialty Diagnoses / Procedures Referred By Contwilliam t Referred To Contact Neurology Diagnoses Intention tremor Isidro Fisher MD [address] [place] [address] Phone: tel: fax: Referral ID Status Reason Start Date Expiration Date V isits Requested Visits Authorized [id number] Closed Specialty Services Required 05/23/2022 11/22/2023 1 1 Encounter Details Date Type Department Care Team (Late Contact Info) Description 05/23/2022 [facility] [address] [place] [id number] Isidro Fisher MD [address] [place] [address] Intention tremor (Primary Dx) Social History Tobacco Use Types Packs/Day Years Used Date Smoking Tobacco: Every Day Smokeless Tobacco: Current Comments:Vape PHQ-2 Answer Date Recorded Patient Health Questionnaire-2 Score 0 03/07/2022 Sex and Gender Information Value Date Recorded Sex Assigned at Not on file Legal Sex Male 8:55 PM EDT Gender Identity Not on file Sexual Orientation Not on file documented as of this encounter Plan of Treatment Upcoming Encounters Date Type Department Care Team (Late Contact Info) Description 08/05/2025 9:00 AM EST Office Visit [place] [facility] [address] [place] [address] Justen Oakley MD [address] [facility] [address] [place] [address] Scheduled Referrals Name Type Priority Associated Diagnoses Order Schedule Ambulatory referral to Neurology Outpatient Referral Routine Intention tremor Expected: 05/23/2022 (Approximate), Expires: 11/21/2023 documented as of this encounter Visit Diagnoses Diagnosis Intention tremor- Primary Essential and other specified forms of tremor documented in this encounter Additional Health Concerns Assessment Noted Time A fall risk assessment has been complete d for the patient 03/07/2022 1:04 PM EDT documented as of this encounter Care Teams Setup Technician Relationship Specialty Start Date End Date Isidro Fisher MD [address] [place] [address] PCP - General 07/22/20 documented as of this encounter
--- OUTSIDE RECORDS SUMMARY | 2025-06-03 12:22 | XMS_ITS | Clinical Summary ---
Author Organization [facility] Address [address] [place] [address] Care Team Providers Care Relocation Coordinator Name Role Phone Isidro Fisher MD Primary Care Provider Allergies Active Allergy Reactions Criticality Noted Date Comments Acetaminophen Anaphylaxis,Swelling High 11/13/2017 Makes my throat swell throat swells Codeine Rash,Unknown - Patie nt states they do not know rxn details Medium 10/03/2015 rash Ketamine Hallucinations Medium 07/06/2020 visual effects Penicillin G Potassium In D5w Other - please document in the comment field Medium 05/23/2021 Penicillins Rash,Anaphylaxis,Hiv es, Unknown - Patient states they do not know rxn details High 11/27/2011 Throat swells anaphylaxis Medications atorvastatin (Lipitor) 80 MG tablet Take 1 tablet (80 mg) by mouth 1 (one) time each day. 6 Active clopidogrel (Plavix) 75 MG tablet Take 1 tablet (75 mg) by mouth 1 (one) time each day. 1 Active diazePAM (Valium) 5 MG tablet Take 5 mg by mouth. 6 Active empagliflozin (Jardiance) 25 MG Take 25 mg by mouth 1 (one) time each day. 2 Active gabapentin (Neurontin) 800 MG tablet Take 1 tablet (800 mg) by mouth 4 times a day. 2 Active Lantus SoloStar 100 UNIT/ML injection pen Inject 40 Units under the skin 1 (one) time each day in the morning. 40-60 units in the morning 2 Active lisinopril 2.5 MG tablet Take 1 tablet (2.5 mg) by mouth 1 (one) time each day. 6 Active methadone (Dolophine) 10 MG tablet 2 tablets (20 mg). 2 Active omeprazole (PriLOSEC) [address] capsule Take 1 capsule (40 mg) by mouth 1 (one) time each day. 2 Active Insulin Admin Supplies [facility] Standard, Indication: Hyperglycemia Injection-Insulin (soln), Subcutaneous, [facility], 0 Refill(s), For BS <200 = 0 units BS 200-250 = 2 units BS 251-300 = 4 units BS 301-350 = 6 units BS >350 = 8 units and call MD 1 Active potassium chloride 0.4 MEQ/ML IVPB 20 mEq. 1 Active albuterol 108 (90 Base) MCG/ACT inhaler 3 Active albuterol 108 (90 Base) MCG/ACT inhaler 1-2 puffs q 4-6 hours PRN 3 Active aspirin 325 MG tablet Take 1 tablet (325 mg) by mouth 1 (one) time each day. Active bisoprolol-hyd roCHLOROthiazi de (Ziac) 10-6.25 MG tablet Take 1 tablet by mouth. Active Antiseptic Skin Cleanser 4 % solution 3 Active chlorhexidine (Hibiclens) 4 % external liquid Shower each day with solution for 5 days beginning 5 days before surgery. 3 Active Continuous Blood Gluc Exterior Interior Specialist (Dexcom G6 sample finisher) device 2 Active Continuous Blood Gluc Sensor (Dexcom G6 Sensor) [facility] 3 Active Continuous Blood Gluc Transmit (Dexcom G6 transmitter) [facility] 3 Active [employer] COVID-19 Rapid Test kit 2 Active diazePAM (Valium) 10 MG tablet Take 1 tablet (10 mg) by mouth every 12 (twelve) hours if needed. Active famotidine (Pepcid) 20 MG tablet Take 20 mg by mouth twice a day. 1 Active famotidine (Pepcid) 20 MG tablet 3 Active fenofibrate (Tricor) 48 MG tablet 48 mg. 1 Active furosemide (Lasix) 40 MG tablet 40 mg. 1 Active gabapentin (Neurontin) 400 MG capsule 800 mg. 1 Active B-D UF III MINI PEN NEEDLES 31G X 5 MM [facility] 3 Active Easy Comfort Lancets [facility] 2 Active lubiprostone (Amitiza) 24 MCG capsule 24 mcg. 1 Active methylPREDNISo lone (Medrol Dospak) 4 MG tablets Take as directed on package instructions. 3 Active methylPREDNISo lone (Medrol Dospak) 4 MG tablets 3 Active Lagevrio 200 MG capsule 3 Active naloxone (Narcan) 4 mg/0.1 mL nasal spray 4 mg. 1 Active oxyCODONE (Roxicodone) 5 MG immediate release tablet Take 2 tablets (10 mg) by mouth. 3 Active prasugrel (Effient) 10 MG tablet Take 10 mg by mouth. Active Stimulant Laxative 8.6-50 MG tablet 3 Active empagliflozin (Jardiance) 25 MG 1 tablet (25 mg). 1 Active topiramate 50 MG tablet Take 1 tablet (50 mg) by mouth 2 (two) times a day. 180 tablet 3 3 Active bisoprolol (Zebeta) 5 MG tablet 3 Active donepezil (Aricept) 5 MG tablet 3 Active nitroglycerin (Nitrostat) 0.4 MG SL tablet 3 Active propranolol (Inderal) 20 MG tablet 3 Active Ozempic, 0.25 or 0.5 MG/DOSE, 2 MG/3ML solution pen-injector 3 Active senna (Senokot) 8.6 MG tablet SENNA 8.6 MG TABS Ac tive Mounjaro 2.5 MG/0.5ML solution pen-injector solution pen-injector 3 Active primidone (Mysoline) 50 MG tablet Take 0.5 tablets (25 mg) by mouth 3 (three) times a day. 135 tablet 3 3 Active Additional Information Patient not taking.Reported on 04/28/2024 topiramate (Topamax) 25 MG tablet Take 1 tablet (25 mg) by mouth 3 (three) times a day. 270 tablet 3 Active Active Problems Problem Noted Date Diagnosed Date Essential tremor 11/23/2022 Polyneuropathy 11/23/2022 Gait abnormality 11/23/2022 Obesity (BMI 35.0-39.9 without comorbidity) 09/20 Immunizations Immunization Administration Dates Next Due Influenza, injectable, quadrivalent, preservativ e free 04/15/2023,05/14/2022 Family History Medical History Relation Name Comments Conversions - Other Other Back pro blem Relation Name Status Comments Other Social History Tobacco Use Types Packs/Day Years Used Date Smoking Tobacco: Former Cigarettes Smokeless Tobacco: Current Tobacco Cessation:Ready to Q uit: Not Asked; Counseling Given: Not Answered Comments:Vape Alcohol Use Standard Drinks/Week Comments Not Currently 0 (1 standard drink = 0.6 oz pur e alcohol) PHQ-2 Answer Date Recorded Patient Health Questionnaire-2 Score 0 04/28/2024 PHQ-2A Answer Date Recorded Patient Health Questionnaire-2 Score 0 05/27/2023 Sex and Gender Information Value Date Recorded Sex Assigned at Not on file Legal Sex Male 8:55 PM EDT Gender Identity Not on file Sexual Orientation Not on file Last Filed Vital Signs Vital Sign Reading Time Taken Comments Blood Pressure 119/79 04/28/2024 2:19 PM EDT Pulse 82 04/28/2024 2:19 PM EDT Temperature 36.3 C (97.3 F) 07/18/2023 2:24 PM EST Respiratory Rate - - Oxygen Saturation 96% 05/27/2023 1:27 PM EST Inhaled Oxygen Concentration - - Weight 104 kg (228 lb 13.4 oz) 04/28/2024 2:19 P M EDT Height 175.3 cm (5' 9 ) 04/28/2024 2:19 PM EDT Body Mass Index 33.79 04/28/2024 2:19 PM EDT Plan of Treatment Upcoming Encounters Date Type Department Care Team (Late st Contact Info) Description 08/05/2025 9:00 AM EST Office Visit [place] [facility] [address] [place] [phone] Justen Oakley MD [address] [place] [phone] Health Maintenance Due Date Last Done Comments [facility]-HIV Screening 1962 [facility]-Hepatitis C Screening 1962 [facility]-/Child/Adol SDOH Screenings 1962 [facility]- SDOH Screenings 02/13/1980 [facility]-Adult SDOH Screenings 02/13/1980 [facility]-DTaP,Tdap,and Td Vaccines (1 - Tdap) 1981 CT Colonography 2007 Colonoscopy 2007 FIT-DNA 2007 FIT 2007 FOBT 2007 Sigmoidoscopy 2007 [facility]-Colorectal Cancer Screening 2007 [facility]-Pneumococcal Vaccine: 50+ Years (1 of 1 - PCV) 02/13/2012 [facility]-Zoster Vaccines (1 of 2) 02/13/2012 [id number] Vaccine (3 - season) 2025 06/09/2021, 10/13/2020 [facility]-Influenza Vaccine (#1) 03/22/202505/19, 04/15/2023, 05/14/2022 [facility]-Depression Screening 04/28/2025 04/28/2024 [facility]-RSV Vaccine: 60+ Years or (1 - 1-dose 75+ series) 2037 [facility]-Diabetes: Hemoglobin A1C Discontinued 02/03/2024, 11/25/2023, 08/09/2023, Additional history exists [facility]-Obesity Intervention Completed 024, 07/18/2023, 05/27/2023, Additional history exists HPV Vaccines Aged Out No longer eligi ble based on patient's age to complete this topic [facility]-HIB Vaccines Aged Out No longer e ligible based on patient's age to complete this topic [facility]-Hepatitis A Vaccines Aged Out No longer eligible based on patient's age to complete this topic [facility]-IPV Vaccines Aged Out No longer e ligible based on patient's age to complete this topic [facility]-Rotavirus Vaccines Aged Out No lo nger eligible based on patient's age to complete this topic Care Teams Relocation Coordinator Relationship Specialty Start Date End Date Isidro Fisher MD [address] [place] [address] PCP - General 07/22/20
[2025-06-03 15:52] LABS: Alanine Aminotransferase 31 U/L (12-78); Albumin Level 3.9 g/dl (3.5-5.0); Albumin/Globulin Ratio 1.3 (1.1-1.8); Alkaline Phosphatase 153 U/L (38-126); Anion Gap 12.4 mEq/L (5-15); Aspartate Amino Transferase 23 U/L (17-59); Bilirubin,Total 0.9 mg/dl (0.2-1.3); Blood Urea Nitrogen 7 mg/dl (9-20); Calcium 9.4 mg/dl (8.4-10.2); Carbon Dioxide 26 mmol/L (22.0-30.0); Chloride 103 mmol/L (98-107); Cholesterol 127 mg/dl (140-200); Creatinine,Serum 0.70 mg/dl (0.66-1.25); Estimated Glomerular Filt Rate 114 ml/min (>60); GFR (African American) 138 ML/MIN (>60); Globulin 3.1 g/dL (1.3-3.2); Glucose 355 mg/dl (74-100); HDL Cholesterol 35 mg/dl (40-60); Potassium 4.4 mmoL/L (3.5-5.1); Sodium 137 mmol/L (136-145); Total Protein,Serum 7.0 g/dl (6.3-8.2); Triglycerides 103 mg/dl (30-150)
[2025-06-03 16:14] LABS: Hemoglobin A1C 9.6 % (4.0-6.0)
== END 2025-06-03 23:59 | disposition home or self-care (01) ==
LOC: RAD 12:19
PROVIDERS: PCP Family Medicine; Visit Provider Family Medicine
DX: S92.324A Nondisplaced fracture of second metatarsal bone, right foot, initial encounter for closed fracture (principal); S92.334A Nondisplaced fracture of third metatarsal bone, right foot, initial encounter for closed fracture; X58.XXXA Exposure to other specified factors, initial encounter; M19.071 Primary osteoarthritis, right ankle and foot; E11.9 Type 2 diabetes mellitus without complications
CPT/HCPCS: 73630; 80053; 80061; 83036